=== PATIENT | female | born 1950 | race Caucasian/White ===

== ENCOUNTER 2018-09-16 17:10 | Inpatient (IN) | payer OTHER ==
[~2018-09-16] VITALS: Ht 160 cm; Wt 146.1 kg
[2018-09-16 22:05] VITALS: BP 128/59
[2018-09-17] VITALS (7 sets, daily range): BP systolic 129–195; BP diastolic 40–113
[2018-09-17] MEDS ORDERED: ZOLPIDEM 5 MG TABLET. PO PRN (00:30)
[2018-09-17] MEDS ORDERED: ACETAMINOPHEN 325 MG TABLET. PO PRN (00:30)
[2018-09-17] MEDS ORDERED: BENZONATATE 100 MG CAPSULE. PO PRN (00:30)
[2018-09-17] MEDS ORDERED: BISACODYL 10 MG SUPP.RECT. PR PRN (00:30)
[2018-09-17] MEDS ORDERED: LORazepam 1 MG TABLET PO PRN (00:30)
[2018-09-17] MEDS ORDERED: diphenhydrAMINE HCL 25 MG CAPSULE PO PRN (00:30)
[2018-09-17] MEDS ORDERED: CARI350T PO ×2 (00:45)
[2018-09-17] MEDS ORDERED: DEXTROSE 50% 25 GM / 50ML DISP.SYRIN. IV PRN (00:45)
[2018-09-17] MEDS: LEVOTHYROXINE 50 MCG TABLET PO SCH (05:58)
[2018-09-17] MEDS: HEPARIN for SUB-Q USE 5,000 UNIT/ML VIAL. SQ SCH ×3 (06:04→22:00)
[2018-09-17] MEDS: AZTREONAM IV Push 1 GM VIAL. IVP SCH ×3 (06:05→22:28)
[2018-09-17 06:24] LABS: BASO % 0 % (0-3); EOS % 1 % (0-3); HEMOGLOBIN 9.7 g/dL (12.0-15.5); LYMPH # 0.7 x10^3/uL (1.0-4.8); LYMPH % 8 % (24-48); MEAN CORPUSCULAR HEMOGLOBIN 29 pg (25-35); MEAN CORPUSCULAR HGB CONC 32 g/dL (31-37); MEAN CORPUSCULAR VOLUME 89 fL (79-100); MONO # 0.5 x10^3/uL (0.0-1.1); MONO % 6 % (0-9); NEUT # 6.6 x10^3uL (1.8-7.7); NEUT % 85 % (31-73); PLATELET COUNT 91 x10^3/uL (140-400); RED BLOOD COUNT 3.35 x10^6/uL (3.50-5.40); RED CELL DISTRIBUTION WIDTH 17.1 % (11.5-14.5); WHITE BLOOD COUNT 7.8 x10^3/uL (4.0-11.0)
[2018-09-17 06:36] LABS: ALBUMIN 1.9 g/dL (3.4-5.0); ALBUMIN/GLOBULIN RATIO 0.4 (1.0-1.7); CALCIUM 8.4 mg/dL (8.5-10.1); CREATININE 1.6 mg/dL (0.6-1.0); GFR 32.1; POTASSIUM 4.8 mmol/L (3.5-5.1); TOTAL BILIRUBIN 0.9 mg/dL (0.2-1.0); TOTAL PROTEIN 6.2 g/dL (6.4-8.2)
[2018-09-17] MEDS: BUDESONIDE 0.5 MG/2 ML NEBU. NEB SCH ×2 (08:00→20:51)
[2018-09-17] MEDS: MORPHINE ER 15 MG TABLET.ER PO SCH ×2 (09:15→14:14)
[2018-09-17] MEDS: SPIRONOLACTONE 25 MG TABLET PO SCH (09:15)
[2018-09-17] MEDS: PREGABALIN 75 MG CAPSULE PO SCH ×3 (09:16→20:22)
[2018-09-17] MEDS: hydrALAZINE 25 MG TABLET PO SCH ×3 (09:16→20:21)
[2018-09-17] MEDS: DOCUSATE SODIUM 100 MG CAPSULE. PO SCH (09:16)
[2018-09-17] MEDS: PIOGLITAZONE 15 MG TABLET. PO SCH (09:16)
[2018-09-17] MEDS: CARVEDILOL 6.25 MG TABLET. PO SCH ×2 (09:16→14:15)
[2018-09-17] MEDS: LACTOBACILLUS RHAMNOSUS GG 1 CAPSULE. PO SCH ×2 (09:16→20:21)
[2018-09-17] MEDS: FUROSEMIDE 40 MG TABLET. PO SCH ×2 (09:17→14:00)
[2018-09-17] MEDS: MULTIVITAMIN with MINERAL TABLET. PO SCH (09:17)
[2018-09-17] MEDS: ASPIRIN CHEWABLE 81 MG TABLET. PO SCH ×2 (09:17→20:21)
[2018-09-17] MEDS: NYSTATIN TOPICAL POWDER 15GM BOTTLE. TP SCH ×2 (09:17→22:28)
[2018-09-17] MEDS: fentaNYL PF VIAL 100 MCG/2 ML VIAL IV PRN ×4 (09:17→22:14)
[2018-09-17] MEDS: POTASSIUM CHLORIDE 20 MEQ TABLET.ER. PO SCH ×2 (09:17→20:22)
[2018-09-17] MEDS: POLYETHYLENE GLYCOL 3350 17 GM PACKET. PO SCH (09:39)
[2018-09-17] MEDS: INSULIN LISPRO 300 UNITS/3 ML INSULN.PEN. SQ SCH ×4 (09:40→18:48)
--- NOTE | 2018-09-17 12:45 | HP ---
ADMIT DATE: 09/16/2018 HISTORY OF PRESENT ILLNESS: The patient is a 67-year-old female patient who was admitted originally to [facility] on 09/13/2018. She was brought to the Emergency Room after she fell at home and also been running a fever for the last week or so, seems to be getting worse. Her family found her on the floor and in the Emergency Room, she was found to have white cell count of 19,000. Sedimentation rate of 93. Her blood sugar was high into 300, lactic acid was elevated at 2.7. She had elevated troponin and BNP of 12,000. Her TSH was also at 99.7. D-dimer was elevated. She was admitted and was treated with IV antibiotic. She was initially started on vancomycin and doxycycline as SHE IS ALLERGIC TO MULTIPLE ANTIBIOTICS INCLUDING PENICILLIN, SULFA, CEPHALEXIN, CODEINE, LEVOFLOXACIN. Initial investigation showed that she was in acute kidney failed injury. Her creatinine was 3.2. She was hyponatremic with elevated troponin of 0.470. Her beta natriuretic peptide was more than 12,000, and her kidney function has gradually improved such that creatinine came down to 1.4 mg. Given her multiple allergies, we started her on aztreonam as she grew gram-negative rods that were eventually identified as Klebsiella pneumoniae, with growth of more than 100,000 colony forming unit/mL. The bacteria is pansensitive, and she is now on aztreonam 1 gram IV q.8 hourly. Her white cell count came nicely from 19,000-8000. She has had multiple imaging as she fell, and she has been complaining of severe back pain and underwent a CT scan, chest x-ray, which showed that the patient has bilateral parenchymal airspace opacities that represent atelectasis, moderate cardiomegaly. Her pelvic x-ray showed that there is moderate to large volume colonic stool content limits evaluation of iliac wing and sacrum and within these constraints, no evidence of acute fracture or dislocation. No pubic symphysis and SI joint disease. She did have also pelvic CT scan, which basically showed no acute fracture. Given that most of her pain is in the lumbar spine, the CT scan of the lumbar spine showed that she has severe degenerative changes of lumbar spine without a definite acute fracture line seen, multilevel central canal and neural foraminal stenosis throughout. She also had a CT scan of the head and cervical spine. The CT scan of the head showed no midline shift seen. There is high clinical concern for intracranial injury. It may be helpful to obtain a repeat exam when the patient can better tolerate. She has severe degenerative changes of the cervical spine with multilevel central canal and neural foraminal stenosis with scoliotic curvature of the lower cervical spine and upper thoracic spine have a large amount of artifact through the region; therefore, not well evaluated. There is some suspected loss of height at C7 and T1 vertebral bodies which could be from mild compression deformity of unknown age, would correlate with symptoms. She has also enlarged lymph nodes in the right paratracheal region at superior mediastinum. Given her D-dimer was high, she has had a venous Doppler ultrasound of both lower extremities, showed no sonographic evidence of deep vein thrombosis in either lower extremity. She had had also arterial Doppler ultrasound of both lower extremities, which showed severe arterial stenotic disease in the lower extremities. She had a CT scan of the chest, which showed small pleural effusion, mild basilar atelectasis, small pulmonary nodule. Given that she continued to have severe back pain, we did also total body bone scan, which showed there is increased activity throughout the mid and lower thoracic spine, which is most prominent laterally in both sides. This corresponds in location with extensive hypertrophic degenerative changes with marginal spotting evident on the CT study. The nonfocal pattern does not suggest metastatic disease or definite recent fracture. She has increased activity at both sternoclavicular articulation and that is compatible with arthritis. Unfortunately, the patient continued to complain of severe pain despite being on multiple modalities of pain medication including she was getting fentanyl citrate 100 mcg IV every 2 hours. She is also on extended release morphine 60 mg twice a day. She is also on Soma 175 mg at bedtime and Lyrica 75 mg 3 times a day. A decision was made to transfer her to [facility] to consult the Pain Management given that she is morbidly obese and large amount of narcotic and sedatives and when she presented earlier on to the hospital, she was in acute hypoxic hypercapnic respiratory failure. I have consulted the forest pathology associate professor, shipyard painter apprentice and given her multitude of allergies, I also consulted Infectious disease specialist. Prior to discharge, the patient was very lethargic, but arousable, somewhat pale, but no jaundice, cyanosis or thyromegaly. No jugular venous distention, with generalized anasarca. PHYSICAL EXAMINATION: VITAL SIGNS: Her heart rate was 90, blood pressure was 127/70, temperature was 97.6, respiratory rate was 22 and oxygen saturation was 96% on 4 liters of oxygen. HEAD, EYES, EARS, NOSE AND THROAT: Showed normocephalic, atraumatic. NECK: Supple. HEART: Showed normal first and second heart sounds with no gallop, rub or murmur. CHEST: Clear to auscultation. No crepitation or rhonchi. ABDOMEN: Distended, soft, nontender. No guarding or rigidity. No organomegaly. All hernial orifice intact. Bowel sounds normal. NEUROLOGIC: She is very lethargic, moans and groans with every movement. She is unable to be comfortable in any position because of severe back pain. She is awake, alert, responding appropriately. She is able to move her extremities; however, every movement induces severe back pain, and she is basically uncomfortable in any position. LABORATORY DATA: Her lab work this morning showed a white cell count of 7800, hemoglobin 9.7, hematocrit was 30, MCV was 89 and platelet count of 91,000. Her chemistry showed a serum sodium 133, potassium 4.8, chloride 95, bicarbonate 31, anion gap of 7, BUN 27, creatinine 1.6, estimated GFR was 32 mL per minute. Her glucose was 256, calcium was 8.4. Total bilirubin, AST, ALT were normal. Alkaline phosphatase slightly elevated. Total protein was 6.2, albumin was 1.9. PLAN: My plan is to obviously continue with all her current medication and consult the Pain Management, forest pathology associate professor as well as the Infectious Disease. She did grow Klebsiella pneumoniae that is sensitive to all antibiotics. However, we did start her 2 days ago on aztreonam 1 gram IV 3 times a day as per Dr. Hurtado's recommendation. I will also consult the washer cutter for her non-ST segment elevation. FEMI VAZQUEZ MD DR: JORGE ALBERTO/karthik JOB#: [id number] / [id number]
--- NOTE | 2018-09-17 12:56 | CONS ---
DATE OF CONSULTATION: ATTENDING PHYSICIAN: Dr. Caldwell. REASON FOR CONSULTATION: Hypercapnia. Morbid obesity. HISTORY OF PRESENT ILLNESS: The patient is a 67-year-old who is morbidly obese with a BMI of 58. The patient has history of obstructive sleep apnea/obesity hypoventilation syndrome and has a CPAP at home. She was at [facility] in a prolonged stay with multiple issues. She was hospitalized, was treated for sepsis, acute renal failure and also non-ST segment myocardial infarction. She has severe back pain and has been getting multiple pain medications. She was also hypercapnic at [facility]. Her ABG showed a pH of 7.30, pCO2 of 54; however, the latest ABGs while at [facility] significantly improved as the pH was 7.39, pCO2 of 52 and pO2 of 65 on nasal cannula. The patient has been transferred here for control of her back pain, and Dr. Caldwell was concerned that the need for narcotics may worsen her hypercapnia. As a result, I have been consulted. She denies any significant tobacco use. No headaches, no nausea. No vomiting. No diarrhea. She is on oxygen at 3 liters. PAST MEDICAL HISTORY: Significant for morbid obesity, history of obstructive sleep apnea/obesity hypoventilation syndrome. Has a CPAP at home. I am not sure about the compliance. History of diastolic heart failure, history of CKD stage 3, hypertension, dyslipidemia, chronic narcotic abuse and history of venous stasis. SOCIAL HISTORY: Lives by herself. No history of tobacco or alcohol use. MEDICATIONS: Upon arrival were reviewed as listed in the MRAD. She is currently on gabapentin and Lyrica. She is also on morphine sulfate 60 mg p.o. b.i.d. along with fentanyl 100 mcg q.2 hours p.r.n. REVIEW OF SYSTEMS: Twelve-point system obtained. Pertinent positives discussed in my history of present illness, otherwise noncontributory. All systems that were negative were reviewed as well. FAMILY HISTORY: Noncontributory to lungs. PHYSICAL EXAMINATION: GENERAL: She is moaning in pain. Does not appear to be in any obvious respiratory distress. VITAL SIGNS: Blood pressure was reviewed, it was initially high, but is stable now. Afebrile, pulse ox 91% on 4 liters. HEENT: Sclerae nonicteric. NECK: Supple. LUNGS: Diminished breath sounds. CARDIOVASCULAR: Regular rate and rhythm. ABDOMEN: Soft, obese. EXTREMITIES: With venous stasis. LABORATORY DATA: Reviewed. White cell count 7.8, hemoglobin 9.7, platelets are 91. BUN 27, creatinine 1.6. Albumin is 1.9. Chest x-ray showed tiny basal effusions. Her last echo with an EF of 60%. IMPRESSION: 1. The patient with obstructive sleep apnea/obesity hypoventilation syndrome with chronic hypoxia and hypercapnia. Currently, requiring high doses of narcotics for intractable back pain. She needs to be closely watched for respiratory depression. I would recommend we should empirically place her on BiPAP at night while in the hospital. 2. No definite consolidation seen on the chest x-ray. 3. Severe back pain, on high doses of narcotics along with gabapentin and Lyrica. 4. Mild hyponatremia. 5. Severe protein-calorie malnutrition. 6. No significant history of tobacco use. RECOMMENDATIONS: 1. Discussed with Dr. Caldwell. We will place her on BiPAP at bedtime. 2. Watch her respiratory status closely while on high doses of narcotics. 3. Pain control per Anesthesia would be reasonable. 4. Continue her home medications. 5. Continue present oxygen. 6. DVT prophylaxis with subcutaneous heparin is already in place. 7. Discussed with Dr. Caldwell and RN will follow along with you. MOHIT LANTIGUA MD DR: YARELIS/karthik JOB#: [id number] / [id number]
[2018-09-17] MEDS ORDERED: hydrALAZINE 20 MG/ML VIAL. IVP PRN (14:15)
[2018-09-17] MEDS: AMINO AC 3%/ELECTROLYTE/GLYCER 1,000 ML IV SCH (15:06)
--- NOTE | 2018-09-17 15:08 | PDOC ---
SUBJECTIVE Subjective low back pain- worse for one week OBJECTIVE Objective The patient is a 67-year-old who is morbidly obese. The patient has history of obstructive sleep apnea/obesity hypoventilation syndrome and has a CPAP at home. She was at [facility] with a prolonged stay with multiple issues. She was hospitalized, was treated for sepsis, acute renal failure and also non-ST segment myocardial infarction. She has severe back pain and has been getting multiple pain medications.She has been transferred here for control of her back pain. She denies any significant tobacco use. Vital Signs Vital Signs Date Time Temp Pulse Resp B/P (MAP) Pulse Ox O2 Delivery O2 Flow Rate FiO2 09/17/18 14:17 91 Nasal Cannula 4.0 09/17/18 11:26 91 Nasal Cannula 4.0 09/17/18 11:00 98.6 93 16 133/68 (89) 94 Nasal Cannula 4.0 98.6 09/17/18 09:17 91 Nasal Cannula 4.0 09/17/18 09:16 98 168/81 09/17/18 09:16 98 168/81 09/17/18 09:15 91 Nasal Cannula 4.0 09/17/18 08:00 Nasal Cannula 4.0 09/17/18 07:00 98.7 98 16 168/81 (110) 91 Nasal Cannula 4.0 98.7 09/17/18 03:32 99.0 105 16 129/63 (85) 90 Nasal Cannula 4.0 99.0 09/16/18 22:05 97.7 110 16 128/59 (82) 93 Nasal Cannula 2.0 97.7 09/16/18 22:00 Nasal Cannula 4.0 I & O Intake and Output 09/17/18 06:59 Intake Total 0 ml Output Total 1200 ml Balance -1200 ml Intake Oral 0 ml Output Urine Total 1200 ml ASSESSMENT/PLAN Assessment/Plan REC: Maintain MsContin as per home use; IV fentanyl while hospitalized, once outpatient, hydrocodone 7.5mg q 4hrs PRN for breakthrouhgh pain. CT scans of L spine with DDD- Significant deconditioning present -rec: PMR evaluation, &Nutrition counseling COMMENT Lab Laboratory Tests Test 09/16/18 21:34 09/17/18 06:00 09/17/18 07:55 09/17/18 11:50 Glucose (Fingerstick) 270 mg/dL (70-99) 241 mg/dL (70-99) 271 mg/dL (70-99) White Blood Count 7.8 x10^3/uL (4.0-11.0) Red Blood Count 3.35 x10^6/uL (3.50-5.40) Hemoglobin 9.7 g/dL (12.0-15.5) Hematocrit 30.0 % (36.0-47.0) Mean Corpuscular Volume 89 fL (79-100) Mean Corpuscular Hemoglobin 29 pg (25-35) Mean Corpuscular Hemoglobin Concent 32 g/dL (31-37) Red Cell Distribution Width 17.1 % (11.5-14.5) Platelet Count 91 x10^3/uL (140-400) Neutrophils (%) (Auto) 85 % (31-73) Lymphocytes (%) (Auto) 8 % (24-48) Monocytes (%) (Auto) 6 % (0-9) Eosinophils (%) (Auto) 1 % (0-3) Basophils (%) (Auto) 0 % (0-3) Neutrophils # (Auto) 6.6 x10^3uL (1.8-7.7) Lymphocytes # (Auto) 0.7 x10^3/uL (1.0-4.8) Monocytes # (Auto) 0.5 x10^3/uL (0.0-1.1) Eosinophils # (Auto) 0.0 x10^3/uL (0.0-0.7) Basophils # (Auto) 0.0 x10^3/uL (0.0-0.2) Sodium Level 133 mmol/L (136-145) Potassium Level 4.8 mmol/L (3.5-5.1) Chloride Level 95 mmol/L (98-107) Carbon Dioxide Level 31 mmol/L (21-32) Anion Gap 7 (6-14) Blood Urea Nitrogen 27 mg/dL (7-20) Creatinine 1.6 mg/dL (0.6-1.0) Estimated GFR (Cockcroft-Gault) 32.1 BUN/Creatinine Ratio 17 (6-20) Glucose Level 256 mg/dL (70-99) Calcium Level 8.4 mg/dL (8.5-10.1) Total Bilirubin 0.9 mg/dL (0.2-1.0) Aspartate Amino Transf (AST/SGOT) 29 U/L (15-37) Alanine Aminotransferase (ALT/SGPT) 35 U/L (14-59) Alkaline Phosphatase 125 U/L (46-116) Total Protein 6.2 g/dL (6.4-8.2) Albumin 1.9 g/dL (3.4-5.0) Albumin/Globulin Ratio 0.4 (1.0-1.7) THOMAS GARCIA MD Sep 17, 2018 15:08
--- NOTE | 2018-09-17 15:24 | RAD ---
CT of the abdomen and pelvis without contrast, 09/17/2018: HISTORY: Bacteremia Multidetector CT imaging was performed without contrast as requested. The heart is generally enlarged. There is atelectasis in the posterior costophrenic angles bilaterally with a probable trace amount of pleural fluid on the left. The liver is enlarged measuring 21 cm in craniocaudad extent at the level the right lobe. The spleen is at the upper limits of normal in size measuring 14 cm in craniocaudad extent. No hepatic mass is evident. The gallbladder is unremarkable. The pancreas shows no abnormality. There is bilateral renal cortical scarring. The right kidney is malrotated. There is a tiny right intrarenal calcification. There is mild bilateral perinephric edema, worse on the right. There is no evidence of hydronephrosis. Moderate aortoiliac calcific plaquing is present without evidence of aneurysm. No abdominal or pelvic adenopathy is seen. The uterus appears to be surgically absent. A catheter is present in the collapsed urinary bladder. There is diastases of the rectus abdominis musculature with considerable anterior bulging of the intervening fascia. There is a small fat-containing umbilical hernia. The bowel loops are not obstructed. No free air or free fluid is evident in the abdomen or pelvis. There is a mild lumbar scoliosis with moderate multilevel hypertrophic degenerative change. Bony bridging is present at multiple levels in the lower thoracic spine. IMPRESSION: 1. Hepatomegaly with borderline splenomegaly. 2. Bilateral renal scarring and mild perinephric edema. 3. Mild atelectasis posteriorly in the lung bases with a trace amount of left-sided pleural fluid. 4. Diastases of the rectus abdominis musculature. 5. Fat-containing umbilical hernia. PQRS Compliance Statement: One or more of the following individualized dose reduction techniques were utilized for this examination: 1. Automated exposure control 2. Adjustment of the mA and/or kV according to patient size 3. Use of iterative reconstruction technique Electronically signed by: Sridhar Paz MD (09/17/2018 3:21 PM) [facility]
--- NOTE | 2018-09-17 15:33 | RAD ---
EXAM: Chest, single view. HISTORY: Short of breath. COMPARISON: CT dated 03/13/2013. FINDINGS: A frontal view of the chest is obtained. There is suspected mild pulmonary congestion. There is no consolidation, pleural effusion or pneumothorax. There is a prominent cardiac silhouette. There is a left PICC with the tip in the superior vena cava. IMPRESSION: 1. Suspected mild pulmonary congestion and cardiomegaly. 2. Left PICC with the tip in the superior vena cava. Electronically signed by: Mikala Cortes MD (09/17/2018 3:30 PM) [place] [id number]
[2018-09-17] MEDS ORDERED: FAMOTIDINE 20 MG TABLET. PO SCH (17:00)
--- NOTE | 2018-09-17 18:00 | PDOC ---
CARDIO Progress Notes Date and Time Date of Service 09/17/2018 Time of Evaluation 1550 Subjective Subjective: No Chest Pain, No shortness of breath, Other (agitated) Vitals Vitals Vital Signs Date Time Temp Pulse Resp B/P (MAP) Pulse Ox O2 Delivery O2 Flow Rate FiO2 09/17/18 15:59 91 Nasal Cannula 4.0 09/17/18 15:00 98.9 91 16 162/40 (80) 98.9 Weight Weight [ ] Input and Output Intake and Output Intake and Output 09/17/18 07:00 Intake Total 0 ml Output Total 1200 ml Balance -1200 ml Intake Oral 0 ml Output Urine Total 1200 ml Laboratory Labs Laboratory Tests Test 09/16/18 21:34 09/17/18 06:00 09/17/18 07:55 09/17/18 11:50 Glucose (Fingerstick) 270 mg/dL (70-99) 241 mg/dL (70-99) 271 mg/dL (70-99) White Blood Count 7.8 x10^3/uL (4.0-11.0) Red Blood Count 3.35 x10^6/uL (3.50-5.40) Hemoglobin 9.7 g/dL (12.0-15.5) Hematocrit 30.0 % (36.0-47.0) Mean Corpuscular Volume 89 fL (79-100) Mean Corpuscular Hemoglobin 29 pg (25-35) Mean Corpuscular Hemoglobin Concent 32 g/dL (31-37) Red Cell Distribution Width 17.1 % (11.5-14.5) Platelet Count 91 x10^3/uL (140-400) Neutrophils (%) (Auto) 85 % (31-73) Lymphocytes (%) (Auto) 8 % (24-48) Monocytes (%) (Auto) 6 % (0-9) Eosinophils (%) (Auto) 1 % (0-3) Basophils (%) (Auto) 0 % (0-3) Neutrophils # (Auto) 6.6 x10^3uL (1.8-7.7) Lymphocytes # (Auto) 0.7 x10^3/uL (1.0-4.8) Monocytes # (Auto) 0.5 x10^3/uL (0.0-1.1) Eosinophils # (Auto) 0.0 x10^3/uL (0.0-0.7) Basophils # (Auto) 0.0 x10^3/uL (0.0-0.2) Sodium Level 133 mmol/L (136-145) Potassium Level 4.8 mmol/L (3.5-5.1) Chloride Level 95 mmol/L (98-107) Carbon Dioxide Level 31 mmol/L (21-32) Anion Gap 7 (6-14) Blood Urea Nitrogen 27 mg/dL (7-20) Creatinine 1.6 mg/dL (0.6-1.0) Estimated GFR (Cockcroft-Gault) 32.1 BUN/Creatinine Ratio 17 (6-20) Glucose Level 256 mg/dL (70-99) Calcium Level 8.4 mg/dL (8.5-10.1) Total Bilirubin 0.9 mg/dL (0.2-1.0) Aspartate Amino Transf (AST/SGOT) 29 U/L (15-37) Alanine Aminotransferase (ALT/SGPT) 35 U/L (14-59) Alkaline Phosphatase 125 U/L (46-116) Total Protein 6.2 g/dL (6.4-8.2) Albumin 1.9 g/dL (3.4-5.0) Albumin/Globulin Ratio 0.4 (1.0-1.7) Physical Exam HEENT: Neck Supple W Full Motion Chest: Symmetric LUNGS: Other (basilar crackles) Heart: RRR Abdomen: Soft N/T, Other (obese) Extremities: Other (1-2+ bilateral LE pitting edema) Neurology: alert, other (confuse/agitated) Assessment Assessment Initially consulted at [facility] prior to PMC transfer. 1. NSTEMI - type 2. EF and WM nml. Peaked trop at 0.4 multifactorial as below. 2. Acute on chronic respiratory failure with likely MARIELY, morbid obesity and CHF and possible lung CA 3. Acute on chronic diastolic heart failure, diastolic. improving. 4. Sepsis with lactic acidosis: per PCP 4. Rhabdomyolysis/mild transaminitis 5. hypertension - fair control on current medications 6. ARF on CKD stage 3 - Cr improved 7. Chronic pain syndrome with long history of narcotic dependancy 8. DM2/HLP 9. protein malnutrition 10. Metabolic encephalopathy: presently confused with agitation Recommendations 1. Continue with lasix therapy and secondary prevention measures. 2. CA workup pending. 3. Supportive care. HOMERO MARIE CLIENT SERVICE SUPERVISOR Sep 17, 2018 18:00
[2018-09-17] MEDS: OMEGA-3 FATTY ACIDS/FISH OIL 1,000 MG CAPSULE. PO SCH (20:21)
[2018-09-17] MEDS: GABAPENTIN 300 MG CAPSULE. PO SCH (20:22)
[2018-09-17] MEDS: ATORVASTATIN CALCIUM 20 MG TABLET PO SCH (20:22)
[2018-09-17] MEDS: amLODIPine BESYLATE 10 MG TABLET PO SCH (20:22)
[2018-09-17] MEDS: INSULIN GLARGINE 300 UNITS/3 ML INSULN.PEN. SQ SCH (22:27)
[2018-09-17] MEDS ORDERED: FUROSEMIDE 40 MG/4 ML VIAL. IVP ONE (23:15)
--- NOTE | 2018-09-17 23:30 | NUR ---
Patient was hypertensive, tachypneic, tachycardic, and short of air and was given PRN hydralazine and fentanyl. Dr Caldwell was notified, received orders for IV lasix, ativan, and duonebs.
[2018-09-17] MEDS: IPRATRPIUM/ALBUTEROL 0.5/2.5MG 3 ML NEBU. NEB SCH (23:35)
[2018-09-17] MEDS ORDERED: ACETAMINOPHEN 650 MG SUPP.RECT. PR PRN (23:45)
[2018-09-18] VITALS (24 sets, daily range): BP systolic 119–178; BP diastolic 62–94
[2018-09-18] MEDS ORDERED: VANCOMYCIN PER PHARMACY MC PRN (00:15)
[2018-09-18] MEDS ORDERED: VANCOMYCIN 2 GM in IV NORMAL SALINE 500ML BAG 500 ML IV ONE (00:30)
--- NOTE | 2018-09-18 00:40 | NUR ---
Rapid Response Note: Rapid Response called by patient's RN; per RN and RT, patient with increased respiratory distress requiring BiPap for oxygenation with little improvement. Upon arrival patient does not open her eyes to command and is not verbal but does moan with verbal or tactile stimuli, per RN this is unchanged from previous. Patient has BiPap on with settings of IPAP 20, EPAP 6, Rate 18, and FiO2 40%, respiratory rate 36-40 and O2 saturation 96%, lung sounds clear though decreased--RT states patient had just received a breathing treatment. Heart tones Irregular S1S2 and tele shows AFib with rate 130's, BP 154/64 and patient is very diaphoretic; RN states patient had received Lasix 40MG IVP at 2320--no UO at this time from Lasix. RN stated temp was 103 axillary so Tylenol Supp was given and Lactic acid drawn. Dr Moustapha kevin, returned page at [phone], and notified of above, orders received to transfer patient to ICU, continue BiPap, hold all Narcotics tonight, ABG and protable CXR in am, and notify ID of fever. Dr Bryant kevin, returned paged at [phone], notified of fever, Lactic acid drawn, Tylenol administration, reviewed antibiotics, and Dr Gerard's orders. Orders received for Blood Cultures x1 set, UA with culture if indicated, and start Vancomycin per pharmacy dosing. RN notified of orders and patient transferred to ICU room 106, via bed at 0020, with O2 Simple mask at 10L. Patient immediately placed back on BiPap with same settings, RR now 28 and HR 120's, tele ST 120's. Patient continues to be unresponsive other than moaning. RN to notify family of transfer. Addendum: 09/18/18 at 0232 by RAY KRAUSE RN Amended: Links added.
[2018-09-18] MEDS: INSULIN LISPRO 300 UNITS/3 ML INSULN.PEN. SQ SCH ×8 (00:43→23:51)
[2018-09-18] MEDS: AMINO AC 3%/ELECTROLYTE/GLYCER 1,000 ML IV SCH ×2 (00:59→14:02)
--- NOTE | 2018-09-18 01:16 | NUR ---
Patient transferred to ICU room 106. Accompanied by Rapid response team. Patient returned to Bipap and unable to answer questions at this time. Patient oriented to room, call light/TV remote, and ICU policies. Family notified of patients transfer.
--- NOTE | 2018-09-18 01:35 | NUR ---
Pharmacy Vancomycin Dosing Note S:Consulted to monitor and dose vancomycin started 09/18/18. O:CANDY CHAN is a 67 year old F with UTI . Height: 5 feet, 3 inches Weight: 148.665277 kg [place] Body Weight: 52.40 Adjusted Body Weight: 90.80 Dosing Weight: Actual Other Antibiotics: AZTRONAM 1GM IV Q8H LABS: Last BUN: 27 Last Creatinine: 1.6 Creatinine Clearance: 48 mL/min Last WBC: 7.8 Last Procalcitonin: Tmax (past 24 hours): Microbiology: I/O: Drug Levels: Last level: on at Last dose given at Vancomycin Dosing: Loading Dose: 2000 mg x1 09/18/1829 Dosing Weight: Actual Target Trough: 10-20 A: Based on: Actual Wt and CrCl P: 1. 09/19/1829 Vancomycin 2000 mg IV q24h 2. Follow up Trough level on 09/20/18 at 0000 3. Pharmacy will continue to monitor, follow and adjust therapy as needed. MELLISA ROSENBAUM RPH, 09/18/18 0136 Signed: 09/18/18 at 0137 by MELLISA ROSENBAUM RPH PHA
[2018-09-18] MEDS: IPRATRPIUM/ALBUTEROL 0.5/2.5MG 3 ML NEBU. NEB SCH ×6 (04:00→23:21)
[2018-09-18 04:10] LABS: HEMATOCRIT 29.6 % (36.0-47.0); HEMOGLOBIN 9.3 g/dL (12.0-15.5); RED BLOOD COUNT 3.24 x10^6/uL (3.50-5.40); RED CELL DISTRIBUTION WIDTH 17.4 % (11.5-14.5); WHITE BLOOD COUNT 13.1 x10^3/uL (4.0-11.0)
[2018-09-18 05:14] LABS: BILIRUBIN,URINE SMALL (NEG); CLARITY,URINE CLOUDY; COLOR,URINE AMBER; NITRITE,URINE NEGATIVE (NEG); PROTEIN,URINE 30 mg/dL (NEG-TRACE); UROBILINOGEN,URINE 0.2 mg/dL (0.2 mg/dL)
[2018-09-18 05:19] LABS: CALCIUM 8.8 mg/dL (8.5-10.1); CREATININE 1.9 mg/dL (0.6-1.0); GFR 26.3; POTASSIUM 4.8 mmol/L (3.5-5.1)
[2018-09-18 05:24] LABS: BACTERIA,URINE MODERATE /HPF (0-FEW); RBC,URINE TNTC /HPF (0-2); WBC,URINE >40 /HPF (0-4)
[2018-09-18 05:25] LABS: GRANULAR CASTS,URINE OCCASIONAL /HPF; HYALINE CASTS, URINE OCCASIONAL /HPF; SQUAMOUS EPITHELIAL CELL,UR FEW /LPF; YEAST,URINE PRESENT /HPF
[2018-09-18] MEDS: AZTREONAM IV Push 1 GM VIAL. IVP SCH (05:28)
[2018-09-18] MEDS: HEPARIN for SUB-Q USE 5,000 UNIT/ML VIAL. SQ SCH ×3 (05:34→22:23)
[2018-09-18] MEDS: LEVOTHYROXINE 50 MCG TABLET PO SCH (06:00)
--- NOTE | 2018-09-18 06:02 | CONS ---
DATE OF CONSULTATION: 09/17/2018 REFERRING PHYSICIAN: Romulo Caldwell M.D. REASON FOR CONSULTATION: Gram-negative bacteremia. HISTORY OF PRESENT ILLNESS: A 67-year-old female who lives alone at home with history of coronary artery disease, CHF, COPD, severe DJD, morbid obesity and MARIELY; presented to [facility] on 09/12/2018 with a history of fall at home and running low-grade fever a couple of days prior to admission. The patient's family found her on the floor. She was brought to the ED. Her white count was elevated at 19,000 and ESR of 93. Lactate of 2.7. Elevated troponin. Elevated BNP of 12,000. TSH was elevated at 99.7 and a D-dimer was elevated. The patient was admitted to ICU at [facility] on 09/12/2018 with impression of fall, hyperglycemia, morbid obesity, history of fevers past week. Blood cultures were done 09/12/2018, which have been reported positive for gram-negative rods. Final ID and SUZANNE is pending per microbiology lab today per my discussion. The patient was also found to have DANIELLE on CKD with a creatinine of 3.2. BNP was 12,220; elevated LFTs; malnutrition with albumin of 2.4; deconditioning; leg weakness; severe DJD; elevated D-dimer at 3.76; Klebsiella UTI, pansensitive; was started on aztreonam due to history of PENICILLIN allergy, elevated CK and troponin, could be from rhabdomyolysis, combined metabolic and respiratory acidosis. Leukocytosis was elevated at 19.4, now improving. Elevated lactate, which has improved. Today, the patient complains of pain over the back, which has not changed at all since her admission at [facility]. She denies any fevers or chills. Denies any headache, runny nose, sore throat, difficulty swallowing, nausea, vomiting, diarrhea, abdominal pain and remains on 3 liters O2. Denies any rash or sick contact. The patient has Garcia in place.Pt had numerous CT and CXR done at [facility],report reviewed. PAST MEDICAL HISTORY: Morbid obesity; history of obstructive sleep apnea; obesity hypoventilation syndrome, has CPAP at home; diastolic heart failure; CKD stage 3; hypertension; dyslipidemia; chronic narcotic use; chronic venous stasis; history of chronic low back pain; generalized debility and history of falls. SOCIAL HISTORY: Denies smoking, ETOH or illicit drug use. Lives by herself. No pets. CURRENT MEDICATIONS: Aztreonam. Other medications reviewed in medication list. REVIEW OF SYSTEMS: Negative except for above in the HPI. FAMILY HISTORY: As per HPI. PHYSICAL EXAMINATION: VITAL SIGNS: Temperature 98.6, pulse 93, respiratory rate 16, blood pressure 133/68 and oxygen saturation 91% on 4 liters nasal cannula. GENERAL: Alert, oriented, morbidly obese female lying in bed and moaning due to pain. HEENT: Normocephalic and atraumatic. Anicteric. No thrush. Oral mucosa moist. NECK: Supple. LUNGS: Decreased breath sounds at bases. HEART: S1 and S2 with no gallops or murmurs. ABDOMEN: Soft, obese. Bowel sounds present. Nontender and nondistended. GENITOURINARY: Garcia in place, clear urine. EXTREMITIES: Changes of venous stasis, mild. No edema, no cyanosis. CENTRAL NERVOUS SYSTEM: Moves all 4 extremities, are restricted due to pain over the lower back. DERMATOLOGICAL: Warm and dry. No generalized rash. PSYCHIATRIC: Slightly anxious but cooperative. LABORATORY DATA: White count 7.8, hemoglobin 9.7, hematocrit 30.0, platelets 91, neutrophil 85%, lymphocyte 8 and eosinophil 0. Sodium 133, potassium 4.8, chloride 95, bicarbonate 31, BUN 27, creatinine 1.6 and glucose 256. Calcium 8.4, total bilirubin 0.9, AST 29, ALT 35, alkaline phosphatase 125, total protein 6.2 and albumin 1.9. DIAGNOSTICS: Chest x-ray showed bilateral parenchymal airspace opacities, favoring atelectasis and moderate cardiomegaly. AP pelvis x-ray showed clprikcc-hi-[id number] volume colonic stool limits the evaluation of the iliac wings and sacrum. Within these constraints, no evidence of acute fracture or dislocation and no pubic symphysis or SI joint disease seen. CT of the lumbar spine without contrast, which showed severe degenerative changes of the lumbar spine without definite acute fracture line seen, multilevel central canal and neural foraminal stenosis throughout. CT of the pelvis without contrast, which showed no acute fracture. There is probably a nonobstructing tiny right renal calculus. Garcia catheter is decompressed within the bladder. No dilated bowel. No free pelvic fluid seen. No intramuscular hematoma. CT of the head and cervical spine patient motion limits evaluation of the brain , no midline shift is seen. If there is high clinical suspicion for intracranial injury, it is helpful to obtain a repeat exam when the patient tolerates. Severe degenerative changes of the cervical spine with multilevel central canal neural foraminal stenosis with scoliotic curvature of the lower cervical spine and upper thoracic spine have a large amount of artifact throughout the region; therefore, not well evaluated. There is some suspected loss of height of C7 and T1 vertebral bodies, which could be mild compression deformity of unknown age. correlate with symptoms in the region, enlarged lymph node right paratracheal and superior mediastinum. Bilateral lower extremity ultrasound showed no sonographic evidence of DVT in the lower extremity. Doppler ultrasound of arteries of both lower extremities shows no evidence of severe arterial stenotic disease in the lower extremity. CT chest without contrast on 09/14/2018 showed small pleural effusion with mild basilar atelectasis, small pulmonary nodules. MICROBIOLOGICAL DATA: On 09/12/2018, blood culture, gram-negative elizabeth. ID and SUZANNE pending per microbiology lab today. Repeat BC done at [facility] neg so far Sputum culture, 09/12/2018, upper respiratory culture, yeast positive, routine respiratory dorie. Urine culture, 09/12/2018, shows Klebsiella pneumoniae, only resistant to ampicillin, otherwise pansensitive. On 09/12/2018, throat culture, yeast isolated. Strep culture negative, 09/12/2018. IMPRESSION: 1. Febrile illness from gram negative sepsis 2. Gram-negative sepsis, source likely urinary tract infection, though ID and SUZANNE still pending at this time. 3. Klebsiella pneumonia, pansensitive urinary tract infection, on aztreonam. 4. Leukocytosis, resolved. 5. Lactic acidosis, resolved. 6. Severe back pain with history of fall prior to admission. CT negative for any acute process or fracture 7. Obstructive sleep apnea/obesity hypoventilation syndrome with chronic hypoxia and hypercapnia, on O2. 8. Severe protein-calorie malnutrition. 9. Generalized debility. 10. Protein-calorie malnutrition. 11. Diabetes mellitus with hyperglycemia. 12. Anemia. 13. Chdnk-jr-dwqmxtb renal failure. 14. History of congestive heart failure. 15. Elevated CK from rhabdomyolysis from recent fall. 16. Thrombocytopenia. 17. Deconditioning. 18. Sputum with yeast, likely contamination. 19. Penicillin allergy. The patient is not able to give details. Does not recall taking cephalosporins or Augmentin or amoxicillin in the past RECOMMENDATIONS: 1. Continue aztreonam 2 gram IV q. 8hr for now, renal dosing, pharmacy to assist. 2. Repeat blood cultures 3. Follow up blood cultures from [facility] from 09/14/2018. 4. Follow up final ID and SUZANNE of gram-negative elizabeth from blood cultures, 09/12/2018. 5. The patient has been given one dose of vancomycin at [facility]. 6. The patient has been also on doxycycline at [facility] now off. 7. Obtain a CT abdomen and pelvis without 8. Continue supportive care. 9. Follow up labs in a.m. and cultures. . Discussed with [id number] at bedside. Discussed with RN. Thank you, Dr. Caldwell, for consulting Infectious Disease to participate in this patient's care. We will follow along with you. STACEY KINSEY MD DR: FRANCISCO/karthik JOB#: [id number] / [id number] JOSHUA
[2018-09-18] MEDS: BUDESONIDE 0.5 MG/2 ML NEBU. NEB SCH ×2 (07:14→19:55)
[2018-09-18 07:45] LABS: BASE EXCESS ABG 4 mmol/L (-3-3); HCO3 ABG 29 mmol/L (21-28); PCO2 ABG 42 mmHg (35-46); PO2 ABG 102 mmHg (65-108); SAT O2 ABG 97 % (92-99)
--- NOTE | 2018-09-18 07:49 | PDOC ---
Infectious Disease Note Subjective: Subjective pt transferred to ICU for A fib with RVR Febrile last night at 103 not on pressures Now on bipap c/o pain in back d/w RN Vital Signs: Vital Signs Vital Signs Date Time Temp Pulse Resp B/P (MAP) Pulse Ox O2 Delivery O2 Flow Rate FiO2 09/18/18 07:14 98 BiPAP/CPAP 09/18/18 06:00 94 147/80 (102) 09/18/18 04:00 98.7 98.7 09/17/18 22:50 35 09/17/18 22:43 4.0 Physical Exam: PHYSICAL EXAM GENERAL: Alert, oriented, morbidly obese female lying in bed and moaning due to pain. HEENT: Normocephalic and atraumatic. Anicteric. No thrush. Oral mucosa moist. NECK: Supple. LUNGS: Decreased breath sounds at bases. HEART: S1 and S2 with no gallops or murmurs. ABDOMEN: Soft, obese. Bowel sounds present. Nontender and nondistended. GENITOURINARY: Garcia in place, clear urine. EXTREMITIES: Changes of venous stasis, mild. No edema, no cyanosis. CENTRAL NERVOUS SYSTEM: Moves all 4 extremities, are restricted due to pain over the lower back. DERMATOLOGICAL: Warm and dry. No generalized rash. PSYCHIATRIC: Slightly anxious but cooperative. Medications: Inpatient Meds: Current Medications Medications (Trade) Dose Ordered Sig/Roxane Start Time Stop Time Status Last Admin Dose Admin Acetaminophen (Tylenol Supp) 650 mg PRN Q6HRS PRN 09/17/18 23:45 09/17/18 23:59 650 MG Acetaminophen (Tylenol) 650 mg PRN Q6HRS PRN 09/17/18 00:30 Albuterol/ Ipratropium (Duoneb) 3 ml Q4HRS 09/18/18 00:00 09/18/18 07:13 3 ML Amino Acids/ Glycerin/ Electrolytes 1,000 ml @ 80 mls/hr [id number] 09/17/18 14:15 09/18/18 00:59 80 MLS/HR Amlodipine Besylate (Norvasc) 10 mg HS 09/17/18 21:00 Aspirin (Children'S Aspirin) 81 mg BID 09/17/18 09:00 09/17/18 09:17 81 MG Atorvastatin Calcium (Lipitor) 20 mg QHS 4/17/19 21:00 Aztreonam (Azactam) 1 gm Q8HRS 09/17/18 06:00 09/18/18 07:44 DC 09/18/18 05:28 1 GM Benzonatate (Tessalon Perle) 100 mg PRN TID PRN 09/17/18 00:30 Bisacodyl (Dulcolax Supp) 10 mg PRN DAILY PRN 09/17/18 00:30 Budesonide (Pulmicort) 0.5 mg RTBID 09/17/18 08:00 09/18/18 07:14 0.5 MG Carvedilol (Coreg) 6.25 mg BIDWMEALS 09/17/18 08:00 09/17/18 09:16 6.25 MG Dextrose (Dextrose 50%-Water Syringe) 12.5 gm PRN Q15MIN PRN 09/17/18 00:45 Diphenhydramine HCl (Benadryl) 25 mg PRN Q6HRS PRN 09/17/18 00:30 Docusate Sodium (Colace) 100 mg DAILY 09/17/18 09:00 09/17/18 09:16 100 MG Famotidine (Pepcid) 40 mg DAILYBFRSUP 09/17/18 17:00 Fentanyl Citrate (Fentanyl 2ml Vial) 100 mcg PRN Q2HR PRN 09/17/18 00:30 09/17/18 22:14 100 MCG Fish Oil (Fish Oil) 4,000 mg HS 09/17/18 21:00 Furosemide (Lasix) 40 mg 1X ONCE 09/17/18 23:15 09/17/18 23:16 DC 09/17/18 23:22 40 MG Gabapentin (Neurontin) 600 mg HS 09/17/18 21:00 Heparin Sodium (Porcine) (Heparin Sodium) 5,000 unit Q8HRS 09/17/18 06:00 09/18/18 05:34 5,000 UNIT Hydralazine HCl (Apresoline Inj) 10 mg PRN Q4HRS PRN 09/17/18 14:15 09/17/18 22:16 10 MG Hydralazine HCl (Apresoline) 25 mg TID 09/17/18 09:00 09/17/18 09:16 25 MG Insulin Glargine (Lantus) 25 units QHS 09/17/18 21:00 09/17/18 22:27 25 UNITS Insulin Human Lispro (HumaLOG) 0-7 UNITS Q6HRS 09/17/18 18:00 09/18/18 05:34 7 UNITS Lactobacillus Rhamnosus (Culturelle) 1 cap BID 09/17/18 09:00 09/17/18 09:16 1 CAP Levothyroxine Sodium (Synthroid) 50 mcg DAILY06 09/17/18 06:00 Lorazepam (Ativan) 1 mg PRN Q4HRS PRN 09/17/18 23:15 09/17/18 23:21 1 MG Morphine Sulfate (Ms Contin) 60 mg BID 09/17/18 09:00 09/17/18 09:15 60 MG Multivitamins (Thera M Plus) 1 tab DAILY 09/17/18 09:00 09/17/18 09:17 1 TAB Nystatin (Nystop) 1 antionette BID 09/17/18 09:00 09/17/18 22:28 1 ANTIONETTE Pioglitazone HCl (Actos) 30 mg DAILY 09/17/18 09:00 09/17/18 09:16 30 MG Polyethylene Glycol (miraLAX PACKET) 34 gm DAILY 09/17/18 09:00 09/17/18 09:39 34 GM Potassium Chloride (Klor-Con) 20 meq BID 09/17/18 09:00 09/17/18 09:17 20 MEQ Pregabalin (Lyrica) 75 mg [id number] 09/17/18 09:00 09/17/18 09:16 75 MG Spironolactone (Aldactone) 25 mg DAILY 09/17/18 09:00 09/17/18 09:15 25 MG Vancomycin HCl (Vanco Per Pharmacy) 1 each PRN DAILY PRN 09/18/18 00:15 09/18/18 07:44 DC 09/18/18 01:34 1 EACH Vancomycin HCl (Vancomycin Trough Level) 1 each 1X ONCE 09/20/18 00:00 09/20/18 00:00 DC Vancomycin HCl 2 gm/Sodium Chloride 500 ml @ 250 mls/hr Q24H 09/19/18 00:30 09/19/18 00:30 DC Zolpidem Tartrate (Ambien) 5 mg PRN QHS PRN 09/17/18 00:30 Labs: Lab Laboratory Tests Test 09/17/18 07:55 09/17/18 11:50 09/17/18 18:28 09/17/18 21:49 Glucose (Fingerstick) 241 mg/dL (70-99) 271 mg/dL (70-99) 326 mg/dL (70-99) 324 mg/dL (70-99) Test 09/18/18 00:01 09/18/18 00:36 09/18/18 02:55 09/18/18 04:00 Lactic Acid Level 2.6 mmol/L (0.4-2.0) 1.2 mmol/L (0.4-2.0) Glucose (Fingerstick) 322 mg/dL (70-99) Urine Collection Type U bag Urine Color Minda Urine Clarity Cloudy Urine pH 5.0 Urine Specific [place] 1.015 Urine Protein 30 mg/dL (NEG-TRACE) Urine Glucose (UA) 100 mg/dL (NEG) Urine Ketones (Stick) Negative mg/dL (NEG) Urine Blood Large (NEG) Urine Nitrite Negative (NEG) Urine Bilirubin Small (NEG) Urine Urobilinogen Dipstick 0.2 mg/dL (0.2 mg/dL) Urine Leukocyte Esterase Moderate (NEG) Urine RBC Tntc /HPF (0-2) Urine WBC >40 /HPF (0-4) Urine Squamous Epithelial Cells Few /LPF Urine Bacteria Moderate /HPF (0-FEW) Urine Hyaline Casts Occasional /HPF Urine Granular Casts Occasional /HPF Urine Yeast Present /HPF White Blood Count 13.1 x10^3/uL (4.0-11.0) Red Blood Count 3.24 x10^6/uL (3.50-5.40) Hemoglobin 9.3 g/dL (12.0-15.5) Hematocrit 29.6 % (36.0-47.0) Mean Corpuscular Volume 91 fL (79-100) Mean Corpuscular Hemoglobin 29 pg (25-35) Mean Corpuscular Hemoglobin Concent 32 g/dL (31-37) Red Cell Distribution Width 17.4 % (11.5-14.5) Platelet Count 95 x10^3/uL (140-400) Test 09/18/18 05:00 Sodium Level 135 mmol/L (136-145) Potassium Level 4.8 mmol/L (3.5-5.1) Chloride Level 96 mmol/L (98-107) Carbon Dioxide Level 31 mmol/L (21-32) Anion Gap 8 (6-14) Blood Urea Nitrogen 40 mg/dL (7-20) Creatinine 1.9 mg/dL (0.6-1.0) Estimated GFR (Cockcroft-Gault) 26.3 Glucose Level 377 mg/dL (70-99) Calcium Level 8.8 mg/dL (8.5-10.1) Procalcitonin 40.44 ng/mL (0.00-0.10) Micro DIAGNOSTICS: Chest x-ray showed bilateral parenchymal airspace opacities, favoring atelectasis and moderate cardiomegaly. AP pelvis x-ray showed [id number]-xv-[id number] volume colonic stool limits the evaluation of the iliac wings and sacrum. Within these constraints, no evidence of acute fracture or dislocation and no pubic symphysis or SI joint disease seen. CT of the lumbar spine without contrast, which showed severe degenerative changes of the lumbar spine without definite acute fracture line seen, multilevel central canal and neural foraminal stenosis throughout. CT of the pelvis without contrast, which showed no acute fracture. There is probably a nonobstructing tiny right renal calculus. Garcia catheter is decompressed within the bladder. No dilated bowel. No free pelvic fluid seen. No intramuscular hematoma. CT of the head and cervical spine patient motion limits evaluation of the brain , no midline shift is seen. If there is high clinical suspicion for intracranial injury, it is helpful to obtain a repeat exam when the patient tolerates. Severe degenerative changes of the cervical spine with multilevel central canal neural foraminal stenosis with scoliotic curvature of the lower cervical spine and upper thoracic spine have a large amount of artifact throughout the region; therefore, not well evaluated. There is some suspected loss of height of C7 and T1 vertebral bodies, which could be mild compression deformity of unknown age. correlate with symptoms in the region, enlarged lymph node right paratracheal and superior mediastinum. Bilateral lower extremity ultrasound showed no sonographic evidence of DVT in the lower extremity. Doppler ultrasound of arteries of both lower extremities shows no evidence of severe arterial stenotic disease in the lower extremity. CT chest without contrast on 09/14/2018 showed small pleural effusion with mild basilar atelectasis, small pulmonary nodules. MICROBIOLOGICAL DATA: On 09/12/2018, blood culture, gram-negative elizabeth. ID and SUZANNE pending per microbiology lab today. Repeat BC done at [facility] neg so far Sputum culture, 09/12/2018, upper respiratory culture, yeast positive, routine respiratory dorie. Urine culture, 09/12/2018, shows Klebsiella pneumoniae, only resistant to ampicillin, otherwise pansensitive. On 09/12/2018, throat culture, yeast isolated. Strep culture negative, 09/12/2018. Objective: Assessment: 1. Febrile illness from gram negative sepsis 09/12 at [facility] PO[facility] 2. Gram-negative sepsis, source likely urinary tract infection, though ID and SUZANNE still pending at this time. 3. Klebsiella pneumonia, pansensitive urinary tract infection with pyelonephritis 4. Leukocytosis Lactic acidosis 5. Acute hypoxic resp failure on bipap 6. Severe back pain with history of fall prior to admission. CT negative for any acute process or fracture 7. Obstructive sleep apnea/obesity hypoventilation syndrome with chronic hypoxia and hypercapnia, on O2. 8. Severe protein-calorie malnutrition. 9. Generalized debility. 10. Protein-calorie malnutrition. 11. Diabetes mellitus with hyperglycemia. 12. Anemia. 13. Mspej-gf-jndhyzu renal failure. 14. History of congestive heart failure. 15. Elevated CK from rhabdomyolysis from recent fall. 16. Thrombocytopenia. 17. Deconditioning. 18. Sputum with yeast, likely contamination. 19. Penicillin allergy. The patient is not able to give details. Does not recall taking cephalosporins or Augmentin or amoxicillin in the past 20. A fib with RVR secondary to sepsis Plan: Plan of Care DC Aztreonam start merrem,monitor closely renal dosing dc vanc start zyvox repeat bc Follow up labs in a.m. and cultures. STACEY KINSEY MD Sep 18, 2018 07:49
[2018-09-18] MEDS: CARVEDILOL 6.25 MG TABLET. PO SCH ×2 (08:00→17:00)
[2018-09-18] MEDS ORDERED: MEROPENEM 500 MG in IV NORMAL SALINE 50ML 50 ML IV SCH (08:00)
--- NOTE | 2018-09-18 08:02 | RAD ---
Portable chest, 09/18/2018: HISTORY: Shortness of breath Comparison is made to yesterday's study. The depth of inspiration is suboptimal with patient rotation to the left. A left PICC remains in place extending into the superior vena cava. The heart is enlarged. There is calcific plaquing the aorta. No pulmonary consolidation is seen. There is no evidence of pleural fluid. Surgical clips are projected over the right axillary region. IMPRESSION: 1. Cardiomegaly. 2. No acute infiltrates. Electronically signed by: Sridhar Paz MD (09/18/2018 7:59 AM) [facility]
[2018-09-18 08:25] LABS: FIO2 ABG 40
[2018-09-18] MEDS: hydrALAZINE 25 MG TABLET PO SCH ×3 (09:00→20:46)
[2018-09-18] MEDS: DOCUSATE SODIUM 100 MG CAPSULE. PO SCH (09:00)
[2018-09-18] MEDS: POLYETHYLENE GLYCOL 3350 17 GM PACKET. PO SCH (09:00)
[2018-09-18] MEDS: NYSTATIN TOPICAL POWDER 15GM BOTTLE. TP SCH ×2 (09:00→20:51)
[2018-09-18] MEDS: MORPHINE ER 15 MG TABLET.ER PO SCH (09:00)
[2018-09-18] MEDS: MULTIVITAMIN with MINERAL TABLET. PO SCH (09:00)
[2018-09-18] MEDS: PIOGLITAZONE 15 MG TABLET. PO SCH (09:00)
[2018-09-18] MEDS ORDERED: MEROPENEM 500 MG in IV NORMAL SALINE 50ML 50 ML IV ONE (09:00)
[2018-09-18] MEDS: POTASSIUM CHLORIDE 20 MEQ TABLET.ER. PO SCH ×2 (09:00→20:47)
[2018-09-18] MEDS: PREGABALIN 75 MG CAPSULE PO SCH ×3 (09:00→20:47)
[2018-09-18] MEDS: LACTOBACILLUS RHAMNOSUS GG 1 CAPSULE. PO SCH ×2 (09:00→20:46)
[2018-09-18] MEDS: ASPIRIN CHEWABLE 81 MG TABLET. PO SCH ×2 (09:00→20:46)
[2018-09-18] MEDS: SPIRONOLACTONE 25 MG TABLET PO SCH (09:00)
--- NOTE | 2018-09-18 10:10 | PDOC ---
PULMONARY PROGRESS NOTES Subjective transfer to ICU last night for lethargy, moaning with pain narcotics with held BIPAP all night Vitals Vital Signs Date Time Temp Pulse Resp B/P (MAP) Pulse Ox O2 Delivery O2 Flow Rate FiO2 09/18/18 07:14 98 BiPAP/CPAP 09/18/18 06:00 94 147/80 (102) 09/18/18 04:00 98.7 98.7 09/17/18 22:50 35 09/17/18 22:43 4.0 General: Lethargic Lungs: Other (decrease bs) Cardiovascular: S1 Abdomen: Soft, Other (obese) Extremities: Other (venous stasis/ edema) Labs Laboratory Tests Test 09/16/18 21:34 09/17/18 06:00 09/17/18 07:55 09/17/18 11:50 Glucose (Fingerstick) 270 mg/dL (70-99) 241 mg/dL (70-99) 271 mg/dL (70-99) White Blood Count 7.8 x10^3/uL (4.0-11.0) Red Blood Count 3.35 x10^6/uL (3.50-5.40) Hemoglobin 9.7 g/dL (12.0-15.5) Hematocrit 30.0 % (36.0-47.0) Mean Corpuscular Volume 89 fL (79-100) Mean Corpuscular Hemoglobin 29 pg (25-35) Mean Corpuscular Hemoglobin Concent 32 g/dL (31-37) Red Cell Distribution Width 17.1 % (11.5-14.5) Platelet Count 91 x10^3/uL (140-400) Neutrophils (%) (Auto) 85 % (31-73) Lymphocytes (%) (Auto) 8 % (24-48) Monocytes (%) (Auto) 6 % (0-9) Eosinophils (%) (Auto) 1 % (0-3) Basophils (%) (Auto) 0 % (0-3) Neutrophils # (Auto) 6.6 x10^3uL (1.8-7.7) Lymphocytes # (Auto) 0.7 x10^3/uL (1.0-4.8) Monocytes # (Auto) 0.5 x10^3/uL (0.0-1.1) Eosinophils # (Auto) 0.0 x10^3/uL (0.0-0.7) Basophils # (Auto) 0.0 x10^3/uL (0.0-0.2) Sodium Level 133 mmol/L (136-145) Potassium Level 4.8 mmol/L (3.5-5.1) Chloride Level 95 mmol/L (98-107) Carbon Dioxide Level 31 mmol/L (21-32) Anion Gap 7 (6-14) Blood Urea Nitrogen 27 mg/dL (7-20) Creatinine 1.6 mg/dL (0.6-1.0) Estimated GFR (Cockcroft-Gault) 32.1 BUN/Creatinine Ratio 17 (6-20) Glucose Level 256 mg/dL (70-99) Calcium Level 8.4 mg/dL (8.5-10.1) Total Bilirubin 0.9 mg/dL (0.2-1.0) Aspartate Amino Transf (AST/SGOT) 29 U/L (15-37) Alanine Aminotransferase (ALT/SGPT) 35 U/L (14-59) Alkaline Phosphatase 125 U/L (46-116) Total Protein 6.2 g/dL (6.4-8.2) Albumin 1.9 g/dL (3.4-5.0) Albumin/Globulin Ratio 0.4 (1.0-1.7) Test 09/17/18 18:28 09/17/18 21:49 09/18/18 00:01 09/18/18 00:36 Glucose (Fingerstick) 326 mg/dL (70-99) 324 mg/dL (70-99) 322 mg/dL (70-99) Lactic Acid Level 2.6 mmol/L (0.4-2.0) Test 09/18/18 02:55 09/18/18 04:00 09/18/18 05:00 09/18/18 07:30 Urine Collection Type U bag Urine Color Minda Urine Clarity Cloudy Urine pH 5.0 Urine Specific [place] 1.015 Urine Protein 30 mg/dL (NEG-TRACE) Urine Glucose (UA) 100 mg/dL (NEG) Urine Ketones (Stick) Negative mg/dL (NEG) Urine Blood Large (NEG) Urine Nitrite Negative (NEG) Urine Bilirubin Small (NEG) Urine Urobilinogen Dipstick 0.2 mg/dL (0.2 mg/dL) Urine Leukocyte Esterase Moderate (NEG) Urine RBC Tntc /HPF (0-2) Urine WBC >40 /HPF (0-4) Urine Squamous Epithelial Cells Few /LPF Urine Bacteria Moderate /HPF (0-FEW) Urine Hyaline Casts Occasional /HPF Urine Granular Casts Occasional /HPF Urine Yeast Present /HPF White Blood Count 13.1 x10^3/uL (4.0-11.0) Red Blood Count 3.24 x10^6/uL (3.50-5.40) Hemoglobin 9.3 g/dL (12.0-15.5) Hematocrit 29.6 % (36.0-47.0) Mean Corpuscular Volume 91 fL (79-100) Mean Corpuscular Hemoglobin 29 pg (25-35) Mean Corpuscular Hemoglobin Concent 32 g/dL (31-37) Red Cell Distribution Width 17.4 % (11.5-14.5) Platelet Count 95 x10^3/uL (140-400) Lactic Acid Level 1.2 mmol/L (0.4-2.0) Sodium Level 135 mmol/L (136-145) Potassium Level 4.8 mmol/L (3.5-5.1) Chloride Level 96 mmol/L (98-107) Carbon Dioxide Level 31 mmol/L (21-32) Anion Gap 8 (6-14) Blood Urea Nitrogen 40 mg/dL (7-20) Creatinine 1.9 mg/dL (0.6-1.0) Estimated GFR (Cockcroft-Gault) 26.3 Glucose Level 377 mg/dL (70-99) Calcium Level 8.8 mg/dL (8.5-10.1) Procalcitonin 40.44 ng/mL (0.00-0.10) O2 Saturation 97 % (92-99) Arterial Blood pH 7.45 (7.35-7.45) Arterial Blood pCO2 at Patient Temp 42 mmHg (35-46) Arterial Blood pO2 at Patient Temp 102 mmHg (65-108) Arterial Blood HCO3 29 mmol/L (21-28) Arterial Blood Base Excess 4 mmol/L (-3-3) FiO2 40 Laboratory Tests Test 09/17/18 11:50 09/17/18 18:28 09/17/18 21:49 09/18/18 00:01 Glucose (Fingerstick) 271 mg/dL (70-99) 326 mg/dL (70-99) 324 mg/dL (70-99) Lactic Acid Level 2.6 mmol/L (0.4-2.0) Test 09/18/18 00:36 09/18/18 02:55 09/18/18 04:00 09/18/18 05:00 Glucose (Fingerstick) 322 mg/dL (70-99) Urine Collection Type U bag Urine Color Minda Urine Clarity Cloudy Urine pH 5.0 Urine Specific [place] 1.015 Urine Protein 30 mg/dL (NEG-TRACE) Urine Glucose (UA) 100 mg/dL (NEG) Urine Ketones (Stick) Negative mg/dL (NEG) Urine Blood Large (NEG) Urine Nitrite Negative (NEG) Urine Bilirubin Small (NEG) Urine Urobilinogen Dipstick 0.2 mg/dL (0.2 mg/dL) Urine Leukocyte Esterase Moderate (NEG) Urine RBC Tntc /HPF (0-2) Urine WBC >40 /HPF (0-4) Urine Squamous Epithelial Cells Few /LPF Urine Bacteria Moderate /HPF (0-FEW) Urine Hyaline Casts Occasional /HPF Urine Granular Casts Occasional /HPF Urine Yeast Present /HPF White Blood Count 13.1 x10^3/uL (4.0-11.0) Red Blood Count 3.24 x10^6/uL (3.50-5.40) Hemoglobin 9.3 g/dL (12.0-15.5) Hematocrit 29.6 % (36.0-47.0) Mean Corpuscular Volume 91 fL (79-100) Mean Corpuscular Hemoglobin 29 pg (25-35) Mean Corpuscular Hemoglobin Concent 32 g/dL (31-37) Red Cell Distribution Width 17.4 % (11.5-14.5) Platelet Count 95 x10^3/uL (140-400) Lactic Acid Level 1.2 mmol/L (0.4-2.0) Sodium Level 135 mmol/L (136-145) Potassium Level 4.8 mmol/L (3.5-5.1) Chloride Level 96 mmol/L (98-107) Carbon Dioxide Level 31 mmol/L (21-32) Anion Gap 8 (6-14) Blood Urea Nitrogen 40 mg/dL (7-20) Creatinine 1.9 mg/dL (0.6-1.0) Estimated GFR (Cockcroft-Gault) 26.3 Glucose Level 377 mg/dL (70-99) Calcium Level 8.8 mg/dL (8.5-10.1) Procalcitonin 40.44 ng/mL (0.00-0.10) Test 09/18/18 07:30 O2 Saturation 97 % (92-99) Arterial Blood pH 7.45 (7.35-7.45) Arterial Blood pCO2 at Patient Temp 42 mmHg (35-46) Arterial Blood pO2 at Patient Temp 102 mmHg (65-108) Arterial Blood HCO3 29 mmol/L (21-28) Arterial Blood Base Excess 4 mmol/L (-3-3) FiO2 40 Medications Active Scripts Medications Dose Route/Sig Max Daily Dose Days Date Category Soma (Carisoprodol) 350 Mg Tablet 175 Mg PO HS 09/17/18 Reported Soma (Carisoprodol) 350 Mg Tablet 350 Mg PO DAILY08 09/17/18 Reported Comments CXR 09/18 NO INFILTRATES Impression . 1. ACUTE/ CHRONIC RF .Patient with obstructive sleep apnea/obesity hypoventilation syndrome with chronic hypoxia and hypercapnia, recently requiring high doses of narcotics for intractable back pain. Needs BIPAP to keep ventilation status stable 2. No definite consolidation seen on the chest x-ray. 3. Severe back pain, on high doses of narcotics along with gabapentin and Lyrica. on hold 4. Mild hyponatremia. 5. Severe protein-calorie malnutrition. 6. No significant history of tobacco use. 7. Few 2-4 mm tiny lung nodules/ ? significance Plan . 1. Discussed with Dr. Caldwell. BiPAP at bedtime. and PRN during day 2. Watch her respiratory status closely / DNR 3. Pain control per Anesthesia would be reasonable. 4. Continue her home medications. 5. Continue present oxygen. 6. DVT prophylaxis with subcutaneous heparin is already in place. 7. Discussed with Dr. Caldwell and RN . Consider palliative care consult and determine goals of care/ ? hospice cct 30 min MOHIT LANTIGUA MD Sep 18, 2018 10:10
[2018-09-18] MEDS: FAMOTIDINE 20 MG/2 ML VIAL IVP SCH ×2 (10:26→20:46)
[2018-09-18] MEDS: FUROSEMIDE 40 MG/4 ML VIAL. IVP SCH ×2 (10:26→14:02)
[2018-09-18] MEDS: MEROPENEM 500 MG in IV NORMAL SALINE 50ML 50 ML IV SCH ×3 (12:44→23:42)
--- NOTE | 2018-09-18 13:08 | PDOC ---
HARJINDER SPARROW DINING ROOM ATTENDANT [place] 09/18/18 1308: CARDIO Progress Notes Date and Time Date of Service 09/18/18 Time of Evaluation 1210 Subjective Subjective: No Chest Pain, No shortness of breath, Other (agitated) Comments: transferred to ICU overnight due to AFIB with RVR and respiratory failure Vitals Vitals Vital Signs Date Time Temp Pulse Resp B/P (MAP) Pulse Ox O2 Delivery O2 Flow Rate FiO2 09/18/18 11:45 96 Venturi Mask 6.0 09/18/18 11:00 95 30 145/70 (95) 09/18/18 08:00 98.6 98.6 Weight Weight [ ] Input and Output Intake and Output Intake and Output 09/18/18 07:00 Intake Total 200 ml Output Total 3920 ml Balance -3720 ml Intake Oral 200 ml Output Urine Total 3920 ml Laboratory Labs Laboratory Tests Test 09/17/18 18:28 09/17/18 21:49 09/18/18 00:01 09/18/18 00:36 Glucose (Fingerstick) 326 mg/dL (70-99) 324 mg/dL (70-99) 322 mg/dL (70-99) Lactic Acid Level 2.6 mmol/L (0.4-2.0) Test 09/18/18 02:55 09/18/18 04:00 09/18/18 05:00 09/18/18 07:30 Urine Collection Type U bag Urine Color Minda Urine Clarity Cloudy Urine pH 5.0 Urine Specific [place] 1.015 Urine Protein 30 mg/dL (NEG-TRACE) Urine Glucose (UA) 100 mg/dL (NEG) Urine Ketones (Stick) Negative mg/dL (NEG) Urine Blood Large (NEG) Urine Nitrite Negative (NEG) Urine Bilirubin Small (NEG) Urine Urobilinogen Dipstick 0.2 mg/dL (0.2 mg/dL) Urine Leukocyte Esterase Moderate (NEG) Urine RBC Tntc /HPF (0-2) Urine WBC >40 /HPF (0-4) Urine Squamous Epithelial Cells Few /LPF Urine Bacteria Moderate /HPF (0-FEW) Urine Hyaline Casts Occasional /HPF Urine Granular Casts Occasional /HPF Urine Yeast Present /HPF White Blood Count 13.1 x10^3/uL (4.0-11.0) Red Blood Count 3.24 x10^6/uL (3.50-5.40) Hemoglobin 9.3 g/dL (12.0-15.5) Hematocrit 29.6 % (36.0-47.0) Mean Corpuscular Volume 91 fL (79-100) Mean Corpuscular Hemoglobin 29 pg (25-35) Mean Corpuscular Hemoglobin Concent 32 g/dL (31-37) Red Cell Distribution Width 17.4 % (11.5-14.5) Platelet Count 95 x10^3/uL (140-400) Lactic Acid Level 1.2 mmol/L (0.4-2.0) Sodium Level 135 mmol/L (136-145) Potassium Level 4.8 mmol/L (3.5-5.1) Chloride Level 96 mmol/L (98-107) Carbon Dioxide Level 31 mmol/L (21-32) Anion Gap 8 (6-14) Blood Urea Nitrogen 40 mg/dL (7-20) Creatinine 1.9 mg/dL (0.6-1.0) Estimated GFR (Cockcroft-Gault) 26.3 Glucose Level 377 mg/dL (70-99) Calcium Level 8.8 mg/dL (8.5-10.1) Procalcitonin 40.44 ng/mL (0.00-0.10) O2 Saturation 97 % (92-99) Arterial Blood pH 7.45 (7.35-7.45) Arterial Blood pCO2 at Patient Temp 42 mmHg (35-46) Arterial Blood pO2 at Patient Temp 102 mmHg (65-108) Arterial Blood HCO3 29 mmol/L (21-28) Arterial Blood Base Excess 4 mmol/L (-3-3) FiO2 40 Test 09/18/18 12:22 Glucose (Fingerstick) 405 mg/dL (70-99) Physical Exam HEENT: Neck Supple W Full Motion Chest: Symmetric LUNGS: Other (diminished bases) Heart: S1S2, RRR Abdomen: Soft N/T, Other (obese) Extremities: Other (1+ bilateral LE pitting edema) Neurology: alert, other (moaning in pain) Assessment Assessment 1. NSTEMI; trop peak 0.4 2. Acute on chronic respiratory failure; transferred to ICU overnight- treated with BiPAP overnight. Now on NC 3. Acute on chronic diastolic heart failure; CXR improved following diuresis, 4. Sepsis. lactic acidosis, fevers 4. Rhabdomyolysis/mild transaminitis 5. Hypertension; remains elevated 6. DANIELLE on CKD; Cr ^ 7. Chronic pain; narcotic dependent; moaning. MRI today 8. PAFIB; mainly SR. Rate better controlled Recommendations Convert coreg to metoprolol for better rate control. Hold aggressive diuresis with rising Cr Swallowing eval pending- use IV metoprolol while NPO Continue ASA Supportive carte WALI HERNANDEZ MD 09/18/18 1835: CARDIO Progress Notes Plan Plan Pt. seen and examined. Agree with above Firefighter note. continue IV drugs until mentation is improved. Afib secondary to her metabolic derangements. Supportive care. Agree with palliative care discussion. HARJINDER SPARROW APRN Sep 18, 2018 13:08 WALI HERNANDEZ MD Sep 18, 2018 18:35
--- NOTE | 2018-09-18 13:40 | NUR ---
Pt to MRI for Lumbar/spine @ 1255. Pt returned to RM [id number], MRI not complete due to respiratory status and anesthesia concerns. MRI rescheduled for 09/19. Family notified.
[2018-09-18] MEDS: fentaNYL PF VIAL 100 MCG/2 ML VIAL IV PRN ×2 (13:53→20:45)
--- NOTE | 2018-09-18 13:58 | PDOC2 ---
PALLIATIVE CARE Palliative Care Note Palliative Care Consult requested by Dr. Caldwell to address goals of care Medical assessment per Medical Record Respiratory Failure--?secondary to narcotics.(on chronic narcotics for back pain --fall prior to admission) pain management BiPap now off A/C diastolic heart failure Sepsis with elevated LA Hypertension DANIELLE/CKD DM2 Rhabdomyolysis/mild transaminitis. Code Status: DNR/DNI. Patient lethargic. Had received MS Contin 60 mg Met with DAYRON Merritt [phone]. and dtr Nisha. Patient also has son Sridhar who lives in [place] Patient . Lives by herself. Has had chronic pain (Fibromyalgia) for many years. Has been on Fentanyl, Methadone and most recently MS Contin 60mg. with fair relief. Patient has been treated for depression. Stopped taking medication because it made her constipated. Attempted to do MRI Patient unable to tolerate lying down--concern for need to intubate. Copy of AD placed on record. Patient enjoyed her hi and going to [employer]. Daughter Shaina states she would be saying to "let her go" Family would like to continue current treatment for now. Did discuss options of Hospice if goal became comfort care. Confirmed DNR/DNI. Plan: DNR/DNI Continue current treatment plan and re- evaluations as needed. DOMENIC GONZALEZ Sep 18, 2018 13:58
--- NOTE | 2018-09-18 14:37 | NUR ---
SS following for discharge planning. SS reviewed pt chart. Pt is from home and is currently requiring oxygen. PT/OT recommended usp unit. Palliative Care consulted for goals of care. SS will await Palliative Care consultation and will proceed accordingly with discharge planning.
[2018-09-18] MEDS ORDERED: METOPROLOL TARTRATE 5 MG/5 ML VIAL. IVP PRN (17:45)
[2018-09-18] MEDS: OMEGA-3 FATTY ACIDS/FISH OIL 1,000 MG CAPSULE. PO SCH (20:47)
[2018-09-18] MEDS: GABAPENTIN 300 MG CAPSULE. PO SCH (20:47)
[2018-09-18] MEDS: ATORVASTATIN CALCIUM 20 MG TABLET PO SCH (20:47)
[2018-09-18] MEDS: METOPROLOL TART IMMED RELEASE 50 MG TABLET. PO SCH (20:47)
[2018-09-18] MEDS: MORPHINE ER 30 MG TABLET.ER PO SCH (20:47)
[2018-09-18] MEDS: amLODIPine BESYLATE 10 MG TABLET PO SCH (20:48)
[2018-09-18] MEDS: INSULIN GLARGINE 300 UNITS/3 ML INSULN.PEN. SQ SCH (20:51)
--- NOTE | 2018-09-18 23:02 | PN ---
DATE: 09/18/2018 SUBJECTIVE: The patient was apparently transferred yesterday from the 6th floor as she became unresponsive, does not open her eyes to command, is not verbal, but does moan with verbal or tactile stimuli. She was on BiPAP and apparently she was in atrial fibrillation with rapid ventricular response with heart rate of 130. She was very diaphoretic and apparently has not responded to 40 mg of IV Lasix and therefore, a decision was made to transfer her to the ICU, to continue with BiPAP, to hold all narcotics and to repeat her blood gases and chest x-ray in the morning. She apparently has more blood cultures taken and was continued on her BiPAP and also procalamine as she was seen by the speech therapist and she was aspirating and therefore, she was kept n.p.o. When I saw her this morning, she continued to moan and groan complaining of pain in her back. Denied any chest pain, no shortness of breath. OBJECTIVE: GENERAL: When I examined her, she was somewhat pale, but no jaundice, cyanosis, or thyromegaly. No jugular venous distention, but mild bilateral lower limb edema. VITAL SIGNS: Her heart rate was 94, blood pressure 147/80, temperature was 98.7, respiratory rate was 28 and oxygen saturation was 98% on 40% by Ventimask. HEAD, EYES, EARS, NOSE AND THROAT: Showed normocephalic, atraumatic. NECK: Supple. HEART: Showed normal first and second heart sounds. No gallop, rub or murmur. CHEST: Clear to auscultation. No crepitation or rhonchi. ABDOMEN: Markedly distended, soft, nontender. NEUROLOGIC: She is awake, alert, constantly moaning and groaning. All her cranial nerves intact. She moves extremities without difficulty, though she is mostly bed bound. Her intake was incompletely recorded, output was 1200. LABORATORY DATA: As of this morning showed a white cell count has risen to 13,100, hemoglobin 9.3, hematocrit 29.6, MCV 91, and platelet count of 95,000. Her serum sodium 135, potassium 4.8, chloride 96, bicarbonate 31, BUN of 40, creatinine 1.9, estimated GFR was 26.3 mL per minute. Her glucose was 377, calcium was 8.8. Procalamine was 40.44. Urinalysis showed the urine was cloudy with a pH of 5, specific gravity 1.015. There was a small amount of protein, large amount of glucose. The urine was negative for ketones. There was large amount of blood, small amount of bilirubin, moderate amount of leukocyte esterase, too numerous to count rbcs, more than 40 wbc's, moderate amount of bacteria. Her blood gases this morning showed a pH of 7.45, pCO2 of 42, pO2 of 102, bicarbonate 29, oxygen saturation was 97% on FiO2 of 40%. ASSESSMENT: 1. Sepsis. The patient has grown Klebsiella pneumoniae from her blood and urine cultures. Given her multitude of allergies, she was treated initially there with aztreonam and she is now on meropenem 500 mg IV q. 6 hourly. 2. Acute kidney injury, improved. Her creatinine came down from 3.2-1.4. Unfortunately, her creatinine is rising again and yesterday it was 1.6 and today has risen further to 1.9. 3. Non-ST segment elevation myocardial infarction with a normal ejection fraction and wall motion. 4. Acute on chronic hypoxic hypercapnic respiratory failure, likely due to morbid obesity, obstructive sleep apnea as well as narcotic dependency. 5. Acute on chronic diastolic congestive heart failure. 6. Rhabdomyolysis has resolved. 7. Hypertension. 8. Chronic pain syndrome with long history of narcotic dependency. We did actually CT scan of the lumbosacral spine as well as total body bone scan and the finding showed no evidence of compression fracture or finding consistent with metastatic disease. 9. Type 2 diabetes mellitus, suboptimally controlled. 10. Hyperlipidemia. 11. Protein-calorie malnutrition. 12. Metabolic encephalopathy, multifactorial. The patient continued to be confused and agitated. PLAN: To continue with the procalamine, continue with IV antibiotic. We are holding all her pain medication as she becomes very confused and unresponsive, we will monitor her lab work and decide on further management accordingly. FEMI VAZQUEZ MD DR: JORGE ALBERTO/karthik JOB#: [id number] / [id number]
[2018-09-19] VITALS (14 sets, daily range): BP systolic 135–185; BP diastolic 59–86
[2018-09-19] MEDS ORDERED: VANCOMYCIN 2 GM in IV NORMAL SALINE 500ML BAG 500 ML IV SCH (00:30)
[2018-09-19] MEDS: AMINO AC 3%/ELECTROLYTE/GLYCER 1,000 ML IV SCH (02:47)
[2018-09-19] MEDS: fentaNYL PF VIAL 100 MCG/2 ML VIAL IV PRN ×3 (02:48→14:29)
[2018-09-19] MEDS: IPRATRPIUM/ALBUTEROL 0.5/2.5MG 3 ML NEBU. NEB SCH ×3 (03:27→11:36)
[2018-09-19] MEDS: LEVOTHYROXINE 50 MCG TABLET PO SCH (05:08)
[2018-09-19] MEDS: MEROPENEM 500 MG in IV NORMAL SALINE 50ML 50 ML IV SCH ×2 (05:41→12:05)
[2018-09-19] MEDS: INSULIN LISPRO 300 UNITS/3 ML INSULN.PEN. SQ SCH ×4 (05:45→12:04)
[2018-09-19] MEDS: HEPARIN for SUB-Q USE 5,000 UNIT/ML VIAL. SQ SCH (05:46)
[2018-09-19 05:57] LABS: HEMATOCRIT 34.1 % (36.0-47.0); HEMOGLOBIN 11.3 g/dL (12.0-15.5); RED BLOOD COUNT 3.83 x10^6/uL (3.50-5.40); RED CELL DISTRIBUTION WIDTH 17.5 % (11.5-14.5); WHITE BLOOD COUNT 11.9 x10^3/uL (4.0-11.0)
[2018-09-19] MEDS ORDERED: ONDANSETRON PF 4 MG/2 ML VIAL. IV PRN (07:00)
[2018-09-19] MEDS ORDERED: IV RINGERS,LACTATED 1000ML 1,000 ML IV SCH (07:00)
[2018-09-19] MEDS ORDERED: PROCHLORPERAZINE 10 MG/2 ML VIAL. IV PRN (07:00)
[2018-09-19] MEDS ORDERED: fentaNYL PF VIAL 100 MCG/2 ML VIAL IV PRN ×2 (07:00)
--- NOTE | 2018-09-19 07:19 | PDOC ---
Infectious Disease Note Subjective: Subjective Pt remains uncomfortable from back pain groaning from pain arousable but does not answer all questions off bipap on 4L by NC not on pressures Temp improving, t max 100 unable to get MRI back as anesthesia is not comfortable per staff at this time d/w RN ROS: ROS pt is moaning in pain Vital Signs: Vital Signs Vital Signs Date Time Temp Pulse Resp B/P (MAP) Pulse Ox O2 Delivery O2 Flow Rate FiO2 09/19/18 06:00 104 32 135/72 (93) 97 BiPAP/CPAP 09/19/18 04:13 98.2 98.2 09/19/18 04:00 3.0 Physical Exam: PHYSICAL EXAM GENERAL: Alert, oriented, morbidly obese female lying in bed and moaning due to pain in mild distress HEENT: Normocephalic and atraumatic. Anicteric. No thrush. Oral mucosa moist. NECK: Supple. LUNGS: Decreased breath sounds at bases. HEART: S1 and S2 with no gallops or murmurs. ABDOMEN: Soft, obese. Bowel sounds present. Nontender and nondistended. GENITOURINARY: Garcia in place, clear urine. EXTREMITIES: Changes of venous stasis, mild. No edema, no cyanosis. CENTRAL NERVOUS SYSTEM: Moves all 4 extremities, are restricted due to pain over the lower back. DERMATOLOGICAL: Warm and dry. No generalized rash. PSYCHIATRIC: Slightly anxious but cooperative. Medications: Inpatient Meds: Current Medications Medications (Trade) Dose Ordered Sig/Roxane Start Time Stop Time Status Last Admin Dose Admin Acetaminophen (Tylenol Supp) 650 mg PRN Q6HRS PRN 09/17/18 23:45 09/17/18 23:59 650 MG Acetaminophen (Tylenol) 650 mg PRN Q6HRS PRN 09/17/18 00:30 Albuterol/ Ipratropium (Duoneb) 3 ml Q4HRS 09/18/18 00:00 09/19/18 03:27 3 ML Amino Acids/ Glycerin/ Electrolytes 1,000 ml @ 80 mls/hr [id number] 09/17/18 14:15 09/19/18 02:47 80 MLS/HR Amlodipine Besylate (Norvasc) 10 mg HS 09/17/18 21:00 Aspirin (Children'S Aspirin) 81 mg BID 09/17/18 09:00 09/17/18 09:17 81 MG Atorvastatin Calcium (Lipitor) 20 mg QHS 09/17/18 21:00 Aztreonam (Azactam) 1 gm Q8HRS 09/17/18 06:00 09/18/18 07:44 DC 09/18/18 05:28 1 GM Benzonatate (Tessalon Perle) 100 mg PRN TID PRN 09/17/18 00:30 Bisacodyl (Dulcolax Supp) 10 mg PRN DAILY PRN 09/17/18 00:30 Budesonide (Pulmicort) 0.5 mg RTBID 09/17/18 08:00 09/18/18 19:55 0.5 MG Carvedilol (Coreg) 6.25 mg BIDWMEALS 09/17/18 08:00 09/18/18 17:38 DC 09/17/18 09:16 6.25 MG Dextrose (Dextrose 50%-Water Syringe) 12.5 gm PRN Q15MIN PRN 09/17/18 00:45 Diphenhydramine HCl (Benadryl) 25 mg PRN Q6HRS PRN 09/17/18 00:30 Docusate Sodium (Colace) 100 mg DAILY 09/17/18 09:00 09/17/18 09:16 100 MG Famotidine (Pepcid Vial) 20 mg BID 09/18/18 10:00 09/18/18 20:46 20 MG Famotidine (Pepcid) 40 mg DAILYBFRSUP 09/17/18 17:00 09/18/18 09:54 DC Fentanyl Citrate (Fentanyl 2ml Vial) 50 mcg PRN Q5MIN PRN 09/19/18 07:00 09/20/18 06:59 Fish Oil (Fish Oil) 4,000 mg HS 09/17/18 21:00 Furosemide (Lasix) 40 mg [id number] 09/18/18 10:00 09/18/18 17:38 DC 09/18/18 14:02 40 MG Gabapentin (Neurontin) 600 mg HS 09/17/18 21:00 Heparin Sodium (Porcine) (Heparin Sodium) 5,000 unit Q8HRS 09/17/18 06:00 09/19/18 05:46 5,000 UNIT Hydralazine HCl (Apresoline Inj) 10 mg PRN Q4HRS PRN 09/17/18 14:15 09/17/18 22:16 10 MG Hydralazine HCl (Apresoline) 25 mg TID 09/17/18 09:00 09/17/18 09:16 25 MG Insulin Glargine (Lantus) 25 units QHS 09/17/18 21:00 09/18/18 20:51 25 UNITS Insulin Human Lispro (HumaLOG) 10 units Q6HRS 09/18/18 12:30 09/19/18 05:46 10 UNITS Lactobacillus Rhamnosus (Culturelle) 1 cap BID 09/17/18 09:00 09/17/18 09:16 1 CAP Levothyroxine Sodium (Synthroid) 50 mcg DAILY06 09/17/18 06:00 Lorazepam (Ativan) 1 mg PRN Q4HRS PRN 09/17/18 23:15 09/19/18 07:06 1 MG Meropenem 500 mg/ Sodium Chloride 50 ml @ 100 mls/hr 1X ONCE 09/18/18 09:00 09/18/18 09:29 DC 09/18/18 09:00 100 MLS/HR Metoprolol Tartrate (Lopressor Vial) 5 mg PRN Q5MIN PRN 09/18/18 17:45 09/18/18 17:56 5 MG Metoprolol Tartrate (Lopressor) 50 mg BID 09/18/18 21:00 Morphine Sulfate (Ms Contin) 60 mg BID 09/18/18 21:00 Multivitamins (Thera M Plus) 1 tab DAILY 09/17/18 09:00 09/17/18 09:17 1 TAB Nystatin (Nystop) 1 antionette BID 09/17/18 09:00 09/18/18 20:51 1 ANTIONETTE Ondansetron HCl (Zofran) 4 mg PRN Q6HRS PRN 09/19/18 07:00 09/20/18 06:59 Pioglitazone HCl (Actos) 30 mg DAILY 09/17/18 09:00 09/17/18 09:16 30 MG Polyethylene Glycol (miraLAX PACKET) 34 gm DAILY 09/17/18 09:00 09/17/18 09:39 34 GM Potassium Chloride (Klor-Con) 20 meq BID 09/17/18 09:00 09/17/18 09:17 20 MEQ Pregabalin (Lyrica) 75 mg [id number] 09/17/18 09:00 09/17/18 09:16 75 MG Prochlorperazine Edisylate (Compazine) 5 mg PACU PRN PRN 09/19/18 07:00 09/20/18 06:59 Ringer's Solution 1,000 ml @ 30 mls/hr Q24H 09/19/18 07:00 09/19/18 18:59 Spironolactone (Aldactone) 25 mg DAILY 09/17/18 09:00 09/17/18 09:15 25 MG Vancomycin HCl (Vanco Per Pharmacy) 1 each PRN DAILY PRN 09/18/18 00:15 09/18/18 07:44 DC 09/18/18 01:34 1 EACH Vancomycin HCl (Vancomycin Trough Level) 1 each 1X ONCE 09/20/18 00:00 09/20/18 00:00 DC Vancomycin HCl 2 gm/Sodium Chloride 500 ml @ 250 mls/hr Q24H 09/19/18 00:30 09/19/18 00:30 DC Zolpidem Tartrate (Ambien) 5 mg PRN QHS PRN 09/17/18 00:30 Labs: Lab Laboratory Tests Test 09/18/18 07:30 09/18/18 12:22 09/18/18 17:55 09/18/18 20:42 O2 Saturation 97 % (92-99) Arterial Blood pH 7.45 (7.35-7.45) Arterial Blood pCO2 at Patient Temp 42 mmHg (35-46) Arterial Blood pO2 at Patient Temp 102 mmHg (65-108) Arterial Blood HCO3 29 mmol/L (21-28) Arterial Blood Base Excess 4 mmol/L (-3-3) FiO2 40 Glucose (Fingerstick) 405 mg/dL (70-99) 345 mg/dL (70-99) 329 mg/dL (70-99) Test 09/18/18 23:41 09/19/18 05:35 09/19/18 05:36 Glucose (Fingerstick) 326 mg/dL (70-99) 331 mg/dL (70-99) White Blood Count 11.9 x10^3/uL (4.0-11.0) Red Blood Count 3.83 x10^6/uL (3.50-5.40) Hemoglobin 11.3 g/dL (12.0-15.5) Hematocrit 34.1 % (36.0-47.0) Mean Corpuscular Volume 89 fL (79-100) Mean Corpuscular Hemoglobin 30 pg (25-35) Mean Corpuscular Hemoglobin Concent 33 g/dL (31-37) Red Cell Distribution Width 17.5 % (11.5-14.5) Platelet Count 118 x10^3/uL (140-400) Micro DIAGNOSTICS: Chest x-ray showed bilateral parenchymal airspace opacities, favoring atelectasis and moderate cardiomegaly. AP pelvis x-ray showed laruiotk-pm-kyjge volume colonic stool limits the evaluation of the iliac wings and sacrum. Within these constraints, no evidence of acute fracture or dislocation and no pubic symphysis or SI joint disease seen. CT of the lumbar spine without contrast, which showed severe degenerative changes of the lumbar spine without definite acute fracture line seen, multilevel central canal and neural foraminal stenosis throughout. CT of the pelvis without contrast, which showed no acute fracture. There is probably a nonobstructing tiny right renal calculus. Garcia catheter is decompressed within the bladder. No dilated bowel. No free pelvic fluid seen. No intramuscular hematoma. CT of the head and cervical spine patient motion limits evaluation of the brain , no midline shift is seen. If there is high clinical suspicion for intracranial injury, it is helpful to obtain a repeat exam when the patient tolerates. Severe degenerative changes of the cervical spine with multilevel central canal neural foraminal stenosis with scoliotic curvature of the lower cervical spine and upper thoracic spine have a large amount of artifact throughout the region; therefore, not well evaluated. There is some suspected loss of height of C7 and T1 vertebral bodies, which could be mild compression deformity of unknown age. correlate with symptoms in the region, enlarged lymph node right paratracheal and superior mediastinum. Bilateral lower extremity ultrasound showed no sonographic evidence of DVT in the lower extremity. Doppler ultrasound of arteries of both lower extremities shows no evidence of severe arterial stenotic disease in the lower extremity. CT chest without contrast on 09/14/2018 showed small pleural effusion with mild basilar atelectasis, small pulmonary nodules. MICROBIOLOGICAL DATA: On 09/12/2018, blood culture, gram-negative elizabeth. ID and SUZANNE pending per microbiology lab today. Repeat BC done at [facility] neg so far Sputum culture, 09/12/2018, upper respiratory culture, yeast positive, routine respiratory dorie. Urine culture, 09/12/2018, shows Klebsiella pneumoniae, only resistant to ampicillin, otherwise pansensitive. On 09/12/2018, throat culture, yeast isolated. Strep culture negative, 09/12/2018. Objective: Assessment: 1. Febrile illness resolving 2. Klebsiella bacteremia 09/12 at [facility] POA source same strain as in urine, repeat bc at [facility] pos for GNR from 09/14 3. Klebsiella pneumonia, pansensitive urinary tract infection with pyelonephritis 4. Leukocytosis Lactic acidosis 5. Acute hypoxic resp failure 6. Severe back pain with history of fall prior to admission. CT negative for any acute process or fracture unable to get MRI of spine back as anesthesia is not comfortable per staff at this time 7. Obstructive sleep apnea/obesity hypoventilation syndrome with chronic hypoxia and hypercapnia, on O2. 8. Severe protein-calorie malnutrition. 9. Generalized debility. 10. Protein-calorie malnutrition. 11. Diabetes mellitus with hyperglycemia. 12. Anemia. 13. Ormkc-wr-lxvhvkx renal failure. 14. History of congestive heart failure. 15. Elevated CK from rhabdomyolysis from recent fall. 16. Thrombocytopenia. 17. Deconditioning. 18. Sputum with yeast, likely contamination. 19. Penicillin allergy. The patient is not able to give details. Does not recall taking cephalosporins or Augmentin or amoxicillin in the past 20. A fib with RVR secondary to sepsis Plan: Plan of Care merrem,(was on aztreonam from [facility]),tolerating it well cont zyvox for now Repeat CT [id number] spine Repeat CT head Follow up labs in a.m. and cultures. Condition guarded D./W STACEY BAPTISTE MD Sep 19, 2018 07:19
[2018-09-19] MEDS: BUDESONIDE 0.5 MG/2 ML NEBU. NEB SCH (07:51)
[2018-09-19] MEDS: SPIRONOLACTONE 25 MG TABLET PO SCH (08:50)
[2018-09-19] MEDS: hydrALAZINE 25 MG TABLET PO SCH (08:50)
[2018-09-19] MEDS: PIOGLITAZONE 15 MG TABLET. PO SCH (08:50)
[2018-09-19] MEDS: ASPIRIN CHEWABLE 81 MG TABLET. PO SCH (08:50)
[2018-09-19] MEDS: FAMOTIDINE 20 MG/2 ML VIAL IVP SCH (08:50)
[2018-09-19] MEDS: POLYETHYLENE GLYCOL 3350 17 GM PACKET. PO SCH (08:51)
[2018-09-19] MEDS: METOPROLOL TART IMMED RELEASE 50 MG TABLET. PO SCH (08:51)
[2018-09-19] MEDS: POTASSIUM CHLORIDE 20 MEQ TABLET.ER. PO SCH (08:51)
[2018-09-19] MEDS: MORPHINE ER 30 MG TABLET.ER PO SCH (08:51)
[2018-09-19] MEDS: DOCUSATE SODIUM 100 MG CAPSULE. PO SCH (08:51)
[2018-09-19] MEDS: PREGABALIN 75 MG CAPSULE PO SCH (08:51)
[2018-09-19] MEDS: LACTOBACILLUS RHAMNOSUS GG 1 CAPSULE. PO SCH (08:51)
[2018-09-19] MEDS: NYSTATIN TOPICAL POWDER 15GM BOTTLE. TP SCH (08:51)
[2018-09-19] MEDS: MULTIVITAMIN with MINERAL TABLET. PO SCH (08:51)
[2018-09-19 08:58] LABS: ALBUMIN 1.9 g/dL (3.4-5.0); ALBUMIN/GLOBULIN RATIO 0.4 (1.0-1.7); CALCIUM 9.7 mg/dL (8.5-10.1); CREATININE 1.6 mg/dL (0.6-1.0); GFR 32.1; TOTAL BILIRUBIN 0.9 mg/dL (0.2-1.0)
--- NOTE | 2018-09-19 10:14 | PDOC ---
PULMONARY PROGRESS NOTES Subjective Moaning in pain/ restless BIPAP all night Vitals Vital Signs Date Time Temp Pulse Resp B/P (MAP) Pulse Ox O2 Delivery O2 Flow Rate FiO2 09/19/18 09:00 95 39 154/70 (98) 97 Nasal Cannula 4.0 09/19/18 08:00 100.0 100.0 General: Lethargic Lungs: Other (decrease bs) Cardiovascular: S1 Abdomen: Soft, Other (obese) Extremities: Other (venous stasis/ edema) Labs Laboratory Tests Test 09/17/18 11:50 09/17/18 18:28 09/17/18 21:49 09/18/18 00:01 Glucose (Fingerstick) 271 mg/dL (70-99) 326 mg/dL (70-99) 324 mg/dL (70-99) Lactic Acid Level 2.6 mmol/L (0.4-2.0) Test 09/18/18 00:36 09/18/18 02:55 09/18/18 04:00 09/18/18 05:00 Glucose (Fingerstick) 322 mg/dL (70-99) Urine Collection Type U bag Urine Color Minda Urine Clarity Cloudy Urine pH 5.0 Urine Specific Fanshawe 1.015 Urine Protein 30 mg/dL (NEG-TRACE) Urine Glucose (UA) 100 mg/dL (NEG) Urine Ketones (Stick) Negative mg/dL (NEG) Urine Blood Large (NEG) Urine Nitrite Negative (NEG) Urine Bilirubin Small (NEG) Urine Urobilinogen Dipstick 0.2 mg/dL (0.2 mg/dL) Urine Leukocyte Esterase Moderate (NEG) Urine RBC Tntc /HPF (0-2) Urine WBC >40 /HPF (0-4) Urine Squamous Epithelial Cells Few /LPF Urine Bacteria Moderate /HPF (0-FEW) Urine Hyaline Casts Occasional /HPF Urine Granular Casts Occasional /HPF Urine Yeast Present /HPF White Blood Count 13.1 x10^3/uL (4.0-11.0) Red Blood Count 3.24 x10^6/uL (3.50-5.40) Hemoglobin 9.3 g/dL (12.0-15.5) Hematocrit 29.6 % (36.0-47.0) Mean Corpuscular Volume 91 fL (79-100) Mean Corpuscular Hemoglobin 29 pg (25-35) Mean Corpuscular Hemoglobin Concent 32 g/dL (31-37) Red Cell Distribution Width 17.4 % (11.5-14.5) Platelet Count 95 x10^3/uL (140-400) Lactic Acid Level 1.2 mmol/L (0.4-2.0) Sodium Level 135 mmol/L (136-145) Potassium Level 4.8 mmol/L (3.5-5.1) Chloride Level 96 mmol/L (98-107) Carbon Dioxide Level 31 mmol/L (21-32) Anion Gap 8 (6-14) Blood Urea Nitrogen 40 mg/dL (7-20) Creatinine 1.9 mg/dL (0.6-1.0) Estimated GFR (Cockcroft-Gault) 26.3 Glucose Level 377 mg/dL (70-99) Calcium Level 8.8 mg/dL (8.5-10.1) Procalcitonin 40.44 ng/mL (0.00-0.10) Test 09/18/18 07:30 09/18/18 12:22 09/18/18 17:55 09/18/18 20:42 O2 Saturation 97 % (92-99) Arterial Blood pH 7.45 (7.35-7.45) Arterial Blood pCO2 at Patient Temp 42 mmHg (35-46) Arterial Blood pO2 at Patient Temp 102 mmHg (65-108) Arterial Blood HCO3 29 mmol/L (21-28) Arterial Blood Base Excess 4 mmol/L (-3-3) FiO2 40 Glucose (Fingerstick) 405 mg/dL (70-99) 345 mg/dL (70-99) 329 mg/dL (70-99) Test 09/18/18 23:41 09/19/18 05:35 09/19/18 05:36 09/19/18 08:30 Glucose (Fingerstick) 326 mg/dL (70-99) 331 mg/dL (70-99) White Blood Count 11.9 x10^3/uL (4.0-11.0) Red Blood Count 3.83 x10^6/uL (3.50-5.40) Hemoglobin 11.3 g/dL (12.0-15.5) Hematocrit 34.1 % (36.0-47.0) Mean Corpuscular Volume 89 fL (79-100) Mean Corpuscular Hemoglobin 30 pg (25-35) Mean Corpuscular Hemoglobin Concent 33 g/dL (31-37) Red Cell Distribution Width 17.5 % (11.5-14.5) Platelet Count 118 x10^3/uL (140-400) Sodium Level 140 mmol/L (136-145) Potassium Level 4.0 mmol/L (3.5-5.1) Chloride Level 99 mmol/L (98-107) Carbon Dioxide Level 32 mmol/L (21-32) Anion Gap 9 (6-14) Blood Urea Nitrogen 47 mg/dL (7-20) Creatinine 1.6 mg/dL (0.6-1.0) Estimated GFR (Cockcroft-Gault) 32.1 BUN/Creatinine Ratio 29 (6-20) Glucose Level 327 mg/dL (70-99) Calcium Level 9.7 mg/dL (8.5-10.1) Total Bilirubin 0.9 mg/dL (0.2-1.0) Aspartate Amino Transf (AST/SGOT) 30 U/L (15-37) Alanine Aminotransferase (ALT/SGPT) 32 U/L (14-59) Alkaline Phosphatase 183 U/L (46-116) Total Protein 7.0 g/dL (6.4-8.2) Albumin 1.9 g/dL (3.4-5.0) Albumin/Globulin Ratio 0.4 (1.0-1.7) Laboratory Tests Test 09/18/18 12:22 09/18/18 17:55 09/18/18 20:42 09/18/18 23:41 Glucose (Fingerstick) 405 mg/dL (70-99) 345 mg/dL (70-99) 329 mg/dL (70-99) 326 mg/dL (70-99) Test 09/19/18 05:35 09/19/18 05:36 09/19/18 08:30 Glucose (Fingerstick) 331 mg/dL (70-99) White Blood Count 11.9 x10^3/uL (4.0-11.0) Red Blood Count 3.83 x10^6/uL (3.50-5.40) Hemoglobin 11.3 g/dL (12.0-15.5) Hematocrit 34.1 % (36.0-47.0) Mean Corpuscular Volume 89 fL (79-100) Mean Corpuscular Hemoglobin 30 pg (25-35) Mean Corpuscular Hemoglobin Concent 33 g/dL (31-37) Red Cell Distribution Width 17.5 % (11.5-14.5) Platelet Count 118 x10^3/uL (140-400) Sodium Level 140 mmol/L (136-145) Potassium Level 4.0 mmol/L (3.5-5.1) Chloride Level 99 mmol/L (98-107) Carbon Dioxide Level 32 mmol/L (21-32) Anion Gap 9 (6-14) Blood Urea Nitrogen 47 mg/dL (7-20) Creatinine 1.6 mg/dL (0.6-1.0) Estimated GFR (Cockcroft-Gault) 32.1 BUN/Creatinine Ratio 29 (6-20) Glucose Level 327 mg/dL (70-99) Calcium Level 9.7 mg/dL (8.5-10.1) Total Bilirubin 0.9 mg/dL (0.2-1.0) Aspartate Amino Transf (AST/SGOT) 30 U/L (15-37) Alanine Aminotransferase (ALT/SGPT) 32 U/L (14-59) Alkaline Phosphatase 183 U/L (46-116) Total Protein 7.0 g/dL (6.4-8.2) Albumin 1.9 g/dL (3.4-5.0) Albumin/Globulin Ratio 0.4 (1.0-1.7) Medications Active Scripts Medications Dose Route/Sig Max Daily Dose Days Date Category Soma (Carisoprodol) 350 Mg Tablet 175 Mg PO HS 09/17/18 Reported Soma (Carisoprodol) 350 Mg Tablet 350 Mg PO DAILY08 09/17/18 Reported Comments CXR 09/18 NO INFILTRATES Impression . 1. ACUTE/ CHRONIC RF .Patient with obstructive sleep apnea/obesity hypoventilation syndrome with chronic hypoxia and hypercapnia, recently requiring high doses of narcotics for intractable back pain. Required BIPAP to keep ventilation status stable 2. No definite consolidation seen on the chest x-ray. 3. Severe back pain, on high doses of narcotics along with gabapentin and Lyrica. Has chronic h/o fibromyalgia, pain accentuated post fall 4. Mild hyponatremia. 5. Severe protein-calorie malnutrition. 6. No significant history of tobacco use. 7. Few 2-4 mm tiny lung nodules/ ? significance Plan . 1. Discussed with Dr. Caldwell. BiPAP at bedtime. and PRN during day 2. Watch her respiratory status closely / DNR 3. Pain control per Anesthesia would be reasonable. 4. Continue her home medications. 5. Continue present oxygen. 6. DVT prophylaxis with subcutaneous heparin is already in place. 7. Discussed with Dr. Caldwell and RN .d/w daughter in detail yesterday. pain is chronic from fibromyalgia/ re-started on pain meds MOHIT LANTIGUA MD Sep 19, 2018 10:14
--- NOTE | 2018-09-19 11:07 | PDOC ---
CARDIO Progress Notes Date and Time Date of Service 09/19/18 Time of Evaluation 1040 Subjective Subjective: Other (moaning) Vitals Vitals Vital Signs Date Time Temp Pulse Resp B/P (MAP) Pulse Ox O2 Delivery O2 Flow Rate FiO2 09/19/18 10:00 96 40 169/84 (112) 95 Nasal Cannula 4.0 09/19/18 08:00 100.0 100.0 Weight Weight [ ] Input and Output Intake and Output Intake and Output 09/19/18 07:00 Intake Total 2418 ml Output Total 4775 ml Balance -2357 ml Intake Oral 0 ml IV Total 2418 ml Output Urine Total 4775 ml Laboratory Labs Laboratory Tests Test 09/18/18 12:22 09/18/18 17:55 09/18/18 20:42 09/18/18 23:41 Glucose (Fingerstick) 405 mg/dL (70-99) 345 mg/dL (70-99) 329 mg/dL (70-99) 326 mg/dL (70-99) Test 09/19/18 05:35 09/19/18 05:36 09/19/18 08:30 Glucose (Fingerstick) 331 mg/dL (70-99) White Blood Count 11.9 x10^3/uL (4.0-11.0) Red Blood Count 3.83 x10^6/uL (3.50-5.40) Hemoglobin 11.3 g/dL (12.0-15.5) Hematocrit 34.1 % (36.0-47.0) Mean Corpuscular Volume 89 fL (79-100) Mean Corpuscular Hemoglobin 30 pg (25-35) Mean Corpuscular Hemoglobin Concent 33 g/dL (31-37) Red Cell Distribution Width 17.5 % (11.5-14.5) Platelet Count 118 x10^3/uL (140-400) Sodium Level 140 mmol/L (136-145) Potassium Level 4.0 mmol/L (3.5-5.1) Chloride Level 99 mmol/L (98-107) Carbon Dioxide Level 32 mmol/L (21-32) Anion Gap 9 (6-14) Blood Urea Nitrogen 47 mg/dL (7-20) Creatinine 1.6 mg/dL (0.6-1.0) Estimated GFR (Cockcroft-Gault) 32.1 BUN/Creatinine Ratio 29 (6-20) Glucose Level 327 mg/dL (70-99) Calcium Level 9.7 mg/dL (8.5-10.1) Total Bilirubin 0.9 mg/dL (0.2-1.0) Aspartate Amino Transf (AST/SGOT) 30 U/L (15-37) Alanine Aminotransferase (ALT/SGPT) 32 U/L (14-59) Alkaline Phosphatase 183 U/L (46-116) Total Protein 7.0 g/dL (6.4-8.2) Albumin 1.9 g/dL (3.4-5.0) Albumin/Globulin Ratio 0.4 (1.0-1.7) Microbiology Micro Microbiology 09/18/18 Blood Culture - Preliminary, Resulted NO GROWTH AFTER 1 DAY Physical Exam HEENT: Neck Supple W Full Motion Chest: Symmetric LUNGS: Other (diminished bases) Heart: S1S2, RRR Abdomen: Soft N/T, Other (obese) Extremities: Other (1+ bilateral LE pitting edema) Neurology: other (drowsy, moaning. ) Assessment Assessment 1. Acute on chronic respiratory failure; better, on NC 2. Chronic pain; narcotic dependent; moaning. Unable to perform MRI 3. Acute on chronic diastolic heart failure; compensated 4. Sepsis. lactic acidosis, fevers 5. Hypertension; 6. DANIELLE on CKD; Cr better 7. PAFIB; maintaining SR. Recommendations Resume maintenance lasix IV metoprolol while NPO- convert to scheduled Plans for palliative care/Hospice Supportive care HARJINDER SPARROW APRN Sep 19, 2018 11:07
--- NOTE | 2018-09-19 11:11 | PDOC2 ---
PALLIATIVE CARE Palliative Care Note Palliative Care Patient moaning. Does not respond to verbal stimuli/commands. Met with daughter/DPOA Shaina, granddaughter Angela and brother John. Dr. Gerard had reviewed medical condition just prior to our discussion. Family feels that she would not want to proceed with aggressive care. They are concerned about her QOL and being able to return to her previous activity. They would like to focus on comfort and proceed with hospice. Shaina states she would not be able to care for her at home. Will need better control of symptoms before moving to a facility. Family is in process of selecting Hospice. Will need IP Hospice for symptom management. Family does not want to proceed with CT or MRI. Yusef PINZON will call Dr. Caldwell for orders Family has selected [facility]. Nuvia TAN will contact [employer] Ethics Officer for contract. Spoke with family again. Will stop medications that are not adding to her comfort. They are in agreement. [facility] met with family. Contract discussed with Administration. Unable to accept GIP. Spoke with daughter Shaina---agrees to meet with [facility]. Melvin DUNBAR faxed information. DOMENIC GONZALEZ Sep 19, 2018 11:11
[2018-09-19] MEDS ORDERED: VANCOMYCIN 1GM IVPB FOR OMNI 250 ML IV ONE (12:00)
[2018-09-19] MEDS ORDERED: VANCOMYCIN 1 GM in IV NORMAL SALINE 250ML 250 ML IV ONE (12:00)
[2018-09-19] MEDS ORDERED: METOPROLOL TARTRATE 5 MG/5 ML VIAL. IVP SCH (12:00)
--- NOTE | 2018-09-19 12:16 | NUR ---
SS following up with discharge planning. SS received notification from Palliative Care RN, Doretha, stating that pt will need inpatient hospice at this hospital. Pt's family adamant that services will need to be through [facility] as they have experience with that company. SS phoned and faxed referral to [facility], ; fax [phone]. SS notified supervisor lathing, Kobe Denis, about family request for GIP with [facility]. provided [facility] with contact information for Kobe Denis for GIP contract.
[2018-09-19] MEDS ORDERED: MORPHINE SULFATE 4 MG/ML VIAL. IV PRN (12:45)
--- NOTE | 2018-09-19 13:02 | NUR ---
Per Family request, pt on comfort care measures. All home medications and procedures cancelled. Dr. Caldwell notified of family decision and ordered Morphine for pain management.
--- NOTE | 2018-09-19 14:26 | NUR ---
Report called to Susana PINZON on 5N. Pt will be transferred to [id number] after family meeting with hospice.
--- NOTE | 2018-09-19 15:08 | NUR ---
SS received notification that [facility] could not meet contract obligations for inpatient hospice from the hospital. SS met with pt's family. Pt's family expressed discouragement with the situation with being unable to work with [facility] but was agreeable to [facility] for inpatient hospice in the hospital. Melvin DUNBAR, phoned and faxed the referral to [facility]. SS spoke with RN, Ofelia, from [facility] who is coming to meet with pt and family. Pt's RN notified.
[2018-09-19] MEDS ORDERED: IV NORMAL SALINE 1000ML BAG 1,000 ML IV SCH (15:49)
--- NOTE | 2018-09-19 16:36 | NUR ---
Pt has been accepted by [facility] for GIP. Registration notified.
[2018-09-20] MEDS ORDERED: FUROSEMIDE 40 MG/4 ML VIAL. IVP SCH (09:00)
--- NOTE | 2018-09-20 17:51 | PN ---
DATE: 09/19/2018 SUBJECTIVE: The patient continues to moan and groan. She was not even answering my questions and constantly moaning and groaning, seem to be uncomfortable. PHYSICAL EXAMINATION: GENERAL: When I examined her, she was resting slightly propped up in bed, slightly tachypneic. However, there is no pallor, jaundice, cyanosis, or thyromegaly. No jugular venous distention. No lower limb edema. She does have generalized anasarca. VITAL SIGNS: Her heart rate was 101, blood pressure was 171/84, temperature was 100, respiratory rate was 35 and oxygen saturation was 96% on 4 liters of oxygen by nasal cannula. HEAD, EYES, EARS, NOSE AND THROAT: Showed normocephalic, atraumatic. NECK: Supple. HEART: Showed normal first and second heart sounds. No gallop, rub or murmur. CHEST: Shows central trachea, equal bilateral expansion, air entry, vesicular sounds. No crepitation or rhonchi. ABDOMEN: Distended, soft, nontender. NEUROLOGIC: She is awake, but nonverbal. She just constantly moans and groans, seems to be uncomfortable. She moves her extremities spontaneously, although she is mostly bed bound. Her intake was 200, output was 3920. LABORATORY DATA: As of this morning, her white cell count is 11,900, hemoglobin 11, hematocrit 34, MCV 89 and platelet count of 118,000. Her chemistry this morning showed a serum sodium 140, potassium 4, chloride 99, bicarbonate 32, anion gap of 9, BUN 47, creatinine 1.6, estimated GFR was 32. Her glucose was 327, calcium was 9.7. Total bilirubin, AST, ALT were normal. Alkaline phosphatase slightly elevated. Total protein was 7, albumin was 1.9. Her urinalysis showed that the urine was iram, cloudy with a pH of 5, specific gravity of 1.010. The urine was negative for nitrite, positive for leukocyte esterase. There are too numerous to count rbc's, more than 40 wbc's, moderate amount of bacteria. So far, her blood cultures are negative. Her urine and blood cultures done at [facility] showed that she has grown Klebsiella pneumoniae. ASSESSMENT: 1. Sepsis. The patient has grown Klebsiella pneumoniae from blood and urine culture given her multitude of allergies. She was treated initially there with aztreonam. She is now on meropenem 500 mg IV q.6 hourly. 2. Acute kidney injury, improved. Her creatinine came down from 3.2-1.4. Unfortunately, her creatinine has risen slightly to 1.9, today is down to 1.6. 3. Non-ST segment elevation myocardial infarction with normal ejection fraction and normal wall motion. 4. Acute on chronic hypoxic hypercapnic respiratory failure, likely due to morbid obesity, obstructive sleep apnea as well as narcotic dependency. 5. Umjzm-xz-sndcxpr diastolic congestive heart failure. 6. Rhabdomyolysis has resolved. 7. Hypertension, suboptimally controlled. 8. Chronic pain syndrome with long history of narcotic dependency. We have done a CT scan of the lumbosacral spine as well as total body bone scan. The finding showed no evidence of compression fracture or finding consistent with metastatic disease. 9. Type 2 diabetes mellitus, suboptimally controlled. 10. Hyperlipidemia. 11. Protein-calorie malnutrition. 12. Metabolic encephalopathy, multifactorial. The patient continued to be extremely confused, agitated, mourning and groaning. PLAN: To continue with procalamine. Continue the IV antibiotic as recommended by the Infectious Disease specialist. Continue with BiPAP machine at nighttime and oxygen at daytime. She was scheduled for MRI yesterday, but the machinist helper was uncomfortable and an attempt will be made today again for MRI of his lumbosacral spine. FEMI VAZQUEZ MD DR: JORGE ALBERTO/karthik JOB#: [id number] / [id number]
== END 2018-09-19 17:04 | disposition hospice, inpatient (51) | DRG 871 ==
LOC: 6 SOUTH 21:35 → 1 WEST ICU 09-18 00:29 → 5 NORTH 09-19 15:27
PROVIDERS: ADMIT Internal Medicine; ATTEND Internal Medicine
PROC: 5A09357 Assistance with Respiratory Ventilation, Less than 24 Consecutive Hours, Continuous Positive Airway Pressure (ICD-10-PCS; principal; 2018-09-17)
PROC: 5A09357 Assistance with Respiratory Ventilation, Less than 24 Consecutive Hours, Continuous Positive Airway Pressure (ICD-10-PCS; 2018-09-18)
PROC: 5A09357 Assistance with Respiratory Ventilation, Less than 24 Consecutive Hours, Continuous Positive Airway Pressure (ICD-10-PCS; 2018-09-19)
DX: A41.50 Gram-negative sepsis, unspecified (principal); E43 Unspecified severe protein-calorie malnutrition; G93.41 Metabolic encephalopathy; I21.A1 Myocardial infarction type 2; I50.33 Acute on chronic diastolic (congestive) heart failure; J96.21 Acute and chronic respiratory failure with hypoxia; J96.22 Acute and chronic respiratory failure with hypercapnia; E87.1 Hypo-osmolality and hyponatremia; I13.0 Hypertensive heart and chronic kidney disease with heart failure and stage 1 through stage 4 chronic kidney disease, or unspecified chronic kidney disease; N17.9 Acute kidney failure, unspecified; Z68.43 Body mass index [BMI] 50.0-59.9, adult; E66.2 Morbid (severe) obesity with alveolar hypoventilation; F11.20 Opioid dependence, uncomplicated; J98.11 Atelectasis; M62.82 Rhabdomyolysis; N12 Tubulo-interstitial nephritis, not specified as acute or chronic; N18.3 Chronic kidney disease, stage 3 (moderate); Z88.0 Allergy status to penicillin; Z88.2 Allergy status to sulfonamides; Z88.8 Allergy status to other drugs, medicaments and biological substances; B96.1 Klebsiella pneumoniae [K. pneumoniae] as the cause of diseases classified elsewhere; D69.6 Thrombocytopenia, unspecified; D64.9 Anemia, unspecified; E11.22 Type 2 diabetes mellitus with diabetic chronic kidney disease; E11.65 Type 2 diabetes mellitus with hyperglycemia; E78.5 Hyperlipidemia, unspecified; W18.39XA Other fall on same level, initial encounter; F32.9 Major depressive disorder, single episode, unspecified; G89.4 Chronic pain syndrome; Z66 Do not resuscitate; I25.10 Atherosclerotic heart disease of native coronary artery without angina pectoris; I48.91 Unspecified atrial fibrillation; I25.2 Old myocardial infarction; I87.8 Other specified disorders of veins; K59.00 Constipation, unspecified; M19.90 Unspecified osteoarthritis, unspecified site; M47.816 Spondylosis without myelopathy or radiculopathy, lumbar region; M48.00 Spinal stenosis, site unspecified; Z79.891 Long term (current) use of opiate analgesic; Z91.81 History of falling; Y93.89 Activity, other specified; Y92.89 Other specified places as the place of occurrence of the external cause; Y99.8 Other external cause status
CPT/HCPCS: 36415; 36600; 71045; 74176; 80048; 80053; 81001; 82805; 82962; 83605; 84145; 85025; 85027; 87040; 87077; 87086; 87205; 94640; 94660; 94760; J0360; J1644; J1815; J1940; J2060; J2185; J2270; J3010; J3370; J3490; J7030; J7040; J7050; J7620; J7626

== ENCOUNTER 2018-09-19 17:09 | Inpatient (IN) | payer OTHER ==
[~2018-09-19] VITALS: Ht 160 cm; Wt 146.1 kg
--- NOTE | 2018-09-19 17:00 | NUR ---
Admission Note: Patient was admitted to [facility] per Dr. Caldwell. Patients in bed with family at bedside. Patient in bed, this RN implemented fall precautions. ALBERTA Noble with [facility] helped getting patient settled, getting pain medication ordered, and comforting patients family. Will continue to monitor patient.
[~2018-09-19 17:09] MED LIST: CARI350T PO
[2018-09-19 18:00] VITALS: BP 185/83
[2018-09-19] MEDS: IV NORMAL SALINE 1000ML BAG 1,000 ML IV SCH (18:10)
[2018-09-19] MEDS: HYDROmorphone 2 MG/ML VIAL IV PRN ×2 (19:12→21:53)
[2018-09-19 20:00] VITALS: BP 161/94
[2018-09-19] MEDS ORDERED: ACETAMINOPHEN 650 MG SUPP.RECT. PR PRN (20:00)
[2018-09-20] MEDS: HYDROmorphone 2 MG/ML VIAL IV PRN ×4 (06:36→18:18)
[2018-09-20 08:00] VITALS: BP 179/109
[2018-09-20] MEDS ORDERED: HYDROmorphone 2 MG/ML VIAL IV ONE (11:45)
[2018-09-20] MEDS ORDERED: DEXAMETHASONE SOD PHOS 4 MG/ML VIAL IV SCH (12:00)
[2018-09-20] MEDS: IV NORMAL SALINE 1000ML BAG 1,000 ML IV SCH (17:25)
[2018-09-20] MEDS ORDERED: HYDROmorphone 2 MG/ML VIAL IV PRN (18:45)
[2018-09-20 20:00] VITALS: BP 196/81
[2018-09-20] MEDS: HYDROmorphone 2 MG/ML VIAL IV SCH ×2 (20:04→23:58)
--- NOTE | 2018-09-21 00:07 | PN ---
DATE: 09/20/2018 SUBJECTIVE: The patient was transferred from [facility] with severe intractable low back pain. She has a multitude of other medical problems including sepsis due to Klebsiella pneumoniae growing from the urine and culture, severe degenerative disk disease of the lumbar spine. She also has gighc-vl-cdegfyc kidney injury, gle-CN-zxnawkq elevation myocardial infarction and we had discussion with her daughter and discussion was held between the family and our Palliative Care Team and Dr. Gerard, the flooring machine feeder and apparently, the family has decided not to proceed with any aggressive care and given that she has intractable pain and the patient was basically admitted to inpatient hospice for symptom management. All her lab work, imaging studies and all other medication were discontinued as per the family wishes and she was started on fentanyl drip together with the hydromorphone, Ativan for anxiety and pain medication. When I saw her this morning, she continued to moan and groan despite the fact that she was on 145 mcg per hour of fentanyl and therefore, I instructed the nurse to increase it to 50 and maybe after 2-3 hours, increase it to 60 mcg per hour. ASSESSMENT: 1. Dfkyi-ow-yhumpjn hypercapnic hypoxic respiratory failure. 2. Chronic pain that is narcotic dependent. Continued to moan and groan. She is now on a fentanyl and hydromorphone. 3. Aeyqg-vj-ocvmvng diastolic heart failure. 4. Sepsis. 5. Hypertension. 6. Xqltk-fh-rubmlch kidney disease. 7. Paroxysmal atrial fibrillation. PLAN: To continue with the pain management and antianxiety medication and increased the pain medication as needed for comfort. FEMI VAZQUEZ MD DR: JORGE ALBERTO/karthik JOB#: [id number] / [id number]
--- NOTE | 2018-09-21 03:38 | NUR ---
PATIENT AT 0246, PHYSICIAN NOTIFIED, HOSPICE NURSE JOHNNIE NOTIFIED, NURSING LADLE PULLER NOTIFIED, NOVATO TRANSPLANT NOTIFIED. FAMILY AT PATIENTS BEDSIDE.
[2018-09-21] MEDS: HYDROmorphone 2 MG/ML VIAL IV SCH (04:00)
--- NOTE | 2018-09-21 09:36 | NUR ---
PATIENT LEAVES THE UNIT PER CART ACCOMPANIED BY [employer] FROM [facility], RELEASE OF BODY FORM SIGNED IN FRONT ON SECURITY.
--- NOTE | 2018-09-21 10:24 | DS ---
DATE OF DISCHARGE: 09/21/2018 DISCHARGE CERTIFICATE The patient is a 67-year-old female patient who was seen originally at [facility] with severe intractable low back pain. She was also found to have rhabdomyolysis, acute on chronic kidney injury, sepsis due to Klebsiella pneumoniae with growth of Klebsiella from both blood and urine culture. She has also had non-ST segment elevation myocardial infarction. Given that her pain is uncontrolled, decision was made to transfer her to [facility] to consult the pain management clinic together with the nurse obgyn as she is requiring a huge amount of narcotic together with also the Infectious Disease specialist. We have had a lengthy discussion with the family regarding further management and her daughter basically and her family wanted her to go on hospice for comfort care. She was switched to inpatient hospice and started on comfort care in the form of continuous fentanyl infusion together with hydromorphone, lorazepam, dexamethasone. The patient continued to moan and groan, had severe pain, the dosage of her narcotic has been escalated gradually and the patient around 2:46 on 09/21/2018. CAUSE OF : 1. Cardiopulmonary arrest. 2. Acute on chronic hypoxic hypercapnic respiratory failure. 3. Sepsis due to Klebsiella pneumonia. 4. Morbid obesity. 5. Obstructive sleep apnea. FEMI VAZQUEZ MD DR: JORGE ALBERTO/karthik JOB#: [id number] / [id number]
== END 2018-09-21 03:00 | disposition expired | DRG 871 ==
LOC: 5 NORTH 17:11
PROVIDERS: ADMIT Internal Medicine; ATTEND Internal Medicine
DX: A41.9 Sepsis, unspecified organism (principal); I21.4 Non-ST elevation (NSTEMI) myocardial infarction; I50.33 Acute on chronic diastolic (congestive) heart failure; J96.21 Acute and chronic respiratory failure with hypoxia; J96.22 Acute and chronic respiratory failure with hypercapnia; G93.41 Metabolic encephalopathy; F11.20 Opioid dependence, uncomplicated; I13.0 Hypertensive heart and chronic kidney disease with heart failure and stage 1 through stage 4 chronic kidney disease, or unspecified chronic kidney disease; N17.9 Acute kidney failure, unspecified; Z68.43 Body mass index [BMI] 50.0-59.9, adult; E46 Unspecified protein-calorie malnutrition; F41.9 Anxiety disorder, unspecified; G89.29 Other chronic pain; I48.0 Paroxysmal atrial fibrillation; M51.36 Other intervertebral disc degeneration, lumbar region; N18.9 Chronic kidney disease, unspecified; Z51.5 Encounter for palliative care; B96.1 Klebsiella pneumoniae [K. pneumoniae] as the cause of diseases classified elsewhere; E66.01 Morbid (severe) obesity due to excess calories; Z88.6 Allergy status to analgesic agent; Z88.0 Allergy status to penicillin; Z88.2 Allergy status to sulfonamides; Z88.8 Allergy status to other drugs, medicaments and biological substances
CPT/HCPCS: J1100; J1170; J2060; J3010; J7030